=== PATIENT | male | born 1925 | race Caucasian/White ===

== ENCOUNTER 2016-06-19 14:06 | Emergency (ER) | payer OTHER, MEDICARE ==
[~2016-06-19] VITALS: Ht 182.9 cm; Wt 97.4 kg
[~2016-06-19 14:06] MED LIST: ALBUAER9 INH; ALFU10TA30 PO; DABI1CAP PO; DEXT30TA7 PO; FLUT0.0529 NAE; GUAI1TAB55 PO; MAGNSOL11 PO; MAGNSUS5 PO; MENT7.5M TOP; NUTR-977 PO; ONDA4TAB7 SL; OXYC-57 PO; POLYSOL4 OPB; PSYL55.43 PO; RBTDMUDL5 PO; SALI0.6515 NAE; SENN-65 PO; TRAM-10 PO
[2016-06-19 14:13] VITALS: TEMP 36.3; Ht 182.9 cm; Wt 97.4 kg
[2016-06-19] MEDS ORDERED: DOCU100C31 PO (14:43)
[2016-06-19] MEDS ORDERED: DABI1CAP PO (14:45)
[2016-06-19] MEDS ORDERED: SODIUM CHLORIDE 0.9% 500ML 500 ML IV STA (14:46)
[2016-06-19] MEDS ORDERED: SILO8CAP PO (14:48)
[2016-06-19] MEDS ORDERED: OPTIRAY 320 IV PRN (15:00)
[2016-06-19 15:37] LABS: URINE APPEARANCE CLEAR (CLEAR); URINE BILIRUBIN NEG (NEG); URINE COLOR YELLOW; URINE EPITHELIAL CELL AUTO 0-5 /lpf (0-5); URINE NITRITE NEG (NEG); URINE SPECIFIC GRAVITY 1.009 (1.000-1.030); UROBILINOGEN NEG (NEG); ZZUR CULT IF INDIC CLEAN CATCH NO
[2016-06-19 15:39] LABS: MANUAL MICROSCOPIC REQUIRED? NO; REVIEW REQ? NO
[2016-06-19 16:02] LABS: CALCIUM 8.9 mg/dl (8.5-10.1); CREATININE 1.7 mg/dl (0.60-1.40); POTASSIUM 4.7 mmol/L (3.5-5.1)
[2016-06-19 16:05] LABS: ALB/GLOB RATIO 1.1 (0.9-2)
[2016-06-19 16:58] LABS: BASO % 0.1 %; BASO ABS # 0.01 K/uL (0-0.2); COMPLETE YES; HEMATOCRIT 36.1 % (42-52); IG% 0.2 %; LYMPH % 17.7 %; LYMPH ABS # 1.42 K/uL (1.2-3.4); MEAN CELL VOLUME 98.6 fL (80-100); MEAN CORPUSCULAR HEMOGLOBIN 33.6 pg (25-34); MEAN CORPUSCULAR HGB CONC 34.1 g/dl (32-36); MEAN PLATELET VOLUME 11.9 fL (7.4-10.4); MONO % 8.8 %; NEUT % 72.2 %; PLATELET COUNT 196 K/uL (130-400); RED BLOOD COUNT 3.66 M/uL (4.7-6.1); WHITE BLOOD COUNT 8.04 K/uL (4.8-10.8)
--- NOTE | 2016-06-19 16:58 | DIAGNOSTIC IMAGING REPORT ---
ABDOMEN AND PELVIS CT WITHOUT CONTRAST CT DOSE: 1994.95 mGy.cm HISTORY: Pain LLQ abd pain TECHNIQUE: Multiaxial CT images of the abdomen and pelvis were performed without the use of intravenous and oral contrast according to the standard department stone protocol. COMPARISON STUDY: 10/30/2015 FINDINGS: Chronic mild bibasilar pulmonary interstitial change. Stable cardiomegaly. Liver spleen and pancreas are unremarkable. Inferior vena caval filter is present. Prior cholecystectomy. Kidneys negative for calcification or hydronephrosis. Bowel pattern overall is nonobstructive. There is no free fluid within the pelvic cul-de-sac. Patient status post right hip arthroplasty. Degenerative changes noted in the osseous structures throughout. A small fat-containing left inguinal hernia is present. There is no evidence of bowel containment or incarceration. IMPRESSION: Chronic and postoperative change. No acute process. Electronically signed by: Bahman Toro M.D. 06/19/2016 4:57 PM Dictated Date/Time: 06/19/2016 4:54 PM
--- NOTE | 2016-06-19 17:35 | EMERGENCY ROOM VISIT NOTE ---
History First contact with patient: 14:30 Chief Complaint: GROIN PAIN Stated Complaint: HERNIA History of Present Illness The patient is a 89 year old male who presents to the Emergency Department by private vehicle for evaluation of a possible hernia. The patient is complaining of pain. The LEFT groin area. He reports a history of anal hernia with repair 4-5 years ago. He reports that yesterday he felt a "poking" sensation in his LEFT inguinal area. He denies any pain into his testicles or scrotum. He reports no discomfort at this point, but reports pain with certain movements. He rates his current discomfort as 0/10. He denies any fevers, chills, medication, melena, hematuria, or dysuria. He denies a chest pain, palpitations, short of breath. Review of Systems A complete 10-point Review of Systems was discussed with the patient, with pertinent positives and negatives listed in the History of Present Illness. All remaining Review of Systems questions can be considered negative unless otherwise specified. Past Medical/Surgical History Medical Problems: (1) Atrial fibrillation (2) Cardiac stents (3) Carotid stents (4) CHF (congestive heart failure) (5) Coronary stents (6) HTN (hypertension) (7) UTI (lower urinary tract infection) Family History Hypertension Social History Smoking Status: Never Smoker Smokeless Tobacco Use: No Alcohol Use: none Drug Use: none Marital Status: Housing Status: assisted living Occupation Status: retired Current/Historical Medications Scheduled Carvedilol (Coreg), 3.125 MG PO BID Cetirizine Hcl (Zyrtec Allergy), 10 MG PO DAILY Cholecalciferol (Vitamin D3), 1 TAB PO DAILY Clonazepam (Klonopin), 0.5 MG PO QPM Dabigatran Etexilate Mesylate (Pradaxa), 75 MG PO BID Docusate Sodium (Docusate Sodium), 1 CAP PO BID Finasteride (Proscar), 5 MG PO DAILY Fluticasone Prop/Salmeterol (Advair Diskus 250/50 60 Dose), 1 PUFF INH BID Fluticasone Propionate (Nasal) (Flonase Allergy Relief), 2 SPRAYS EMAM HS Furosemide (Lasix), 80 MG PO DAILY Guaifenesin Ext Rel (Mucinex Ext Rel), 600 MG PO Q12 Losartan Potassium (Cozaar), 12.5 MG PO DAILY Melatonin (Melatonin), 6 MG PO HS Omeprazole (Prilosec), 20 MG PO DAILY Polyethylene Glycol-Propylene (Systane), 1 DROPS OPB QID Potassium Chloride (Potassium Chloride Er), 10 MEQ PO BID Saline (Saline Mist), 4 SPRAYS EMMA QID Silodosin (Rapaflo), 1 CAP PO HS Scheduled PRN Acetaminophen Tab (Tylenol), 650 MG PO Q4H PRN for Mild Pain Albuterol Sulfate (Proventil Hfa), 2 PUFFS INH Q4H PRN for Shortness of Breath Clindamycin Hcl (Cleocin), 600 MG PO DAILY PRN for PRIOR TO DENTAL APPT Dextromethorphan-Guaifenesin (Robitussin-Dm Syrup), 5 ML PO Q4H PRN for Cough Dextromethorphan-Guaifenesin (Mucinex Dm), 600 MG PO Q12 PRN for CONGESTION Enteral Nutrition Formula (Ensure Plus Vanilla), 1 CAN PO BID PRN for supplement Magnesium Citrate (Citrate Of Megnesia), 75 ML PO DAILY PRN for Constipation Magnesium Hydroxide (Milk Of Magnesia), 30 ML PO DAILY PRN for Constipation Menthol (Mouth-Throat) (Ricola), 1 YOUNG PO Q2H PRN for Cough Menthol (Topical Analgesic) (Icy Hot), 1 APPL TOP TID PRN for Pain Psyllium (Metamucil), 1 TBS PO DAILY PRN for Constipation Senna/Docusate Sod (Senokot S), 1-2 TAB PO BID PRN for Constipation Allergies Coded Allergies: Amoxicillin (Verified Allergy, Unknown, UNKNOWN, 06/19/16) Levofloxacin (Verified Allergy, Unknown, UNKNOWN, 06/19/16) Penicillins (Verified Allergy, Unknown, UNKNOWN, 06/19/16) Physical Exam Vital Signs Date Time Temp Pulse Resp B/P Pulse Ox O2 Delivery O2 Flow Rate FiO2 06/19/16 17:50 62 18 148/66 97 06/19/16 17:31 62 18 148/66 97 Room Air 06/19/16 15:31 61 18 154/71 99 Room Air 06/19/16 14:13 36.3 60 18 128/61 97 Room Air Pain Rating (0-10): 0 Physical Exam VITAL SIGNS - Vital signs and nursing notes were reviewed. GENERAL - 89-year-old male appearing his stated age who is in no acute distress. Communicates well with provider and answers questions appropriately. LUNGS - Chest wall symmetric without accessory muscle use, intercostals retractions, or central cyanosis. Normal vesicular breath sounds CTA B/L. No wheezes, rales, or rhonchi appreciated. CARDIAC - RRR with S1/S2. No murmur, rubs, or gallops appreciated. ABDOMEN - Abdominal contour flat and without pulsations or visible masses. Negative Gilberto's or Akbar Mendiola's Signs. BS normoactive all four quadrants. Mild tenderness to palpation appreciated in the LEFT inguinal area. No guarding. No Rebound Tenderness. Negative Rovsing's. Negative Shine's. No palpable masses, hepatosplenomegaly, or ascites noted. EXTREMITIES - No clubbing or peripheral cyanosis. No pretibial edema present. +3 /5 radial and dorsalis pedis pulses palpated throughout. PSYCH - A&Ox3 and cooperates fully with examiner. Pt is very pleasant and interacts well with examiner. Medical Decision & Procedures ER Provider Diagnostic Interpretation: Radiological imaging and reports were reviewed by myself. Radiologist's Interpretation as follows: ABDOMEN AND PELVIS CT WITHOUT CONTRAST CT DOSE: 1994.95 mGy.cm HISTORY: Pain LLQ abd pain TECHNIQUE: Multiaxial CT images of the abdomen and pelvis were performed without the use of intravenous and oral contrast according to the standard department stone protocol. COMPARISON STUDY: 10/30/2015 FINDINGS: Chronic mild bibasilar pulmonary interstitial change. Stable cardiomegaly. Liver spleen and pancreas are unremarkable. Inferior vena caval filter is present. Prior cholecystectomy. Kidneys negative for calcification or hydronephrosis. Bowel pattern overall is nonobstructive. There is no free fluid within the pelvic cul-de-sac. Patient status post right hip arthroplasty. Degenerative changes noted in the osseous structures throughout. A small fat-containing left inguinal hernia is present. There is no evidence of bowel containment or incarceration. IMPRESSION: Chronic and postoperative change. No acute process. Laboratory Results 06/19/16 15:15 Red Blood Count 3.66, Mean Corpuscular Volume 98.6, Mean Corpuscular Hemoglobin 33.6, Mean Corpuscular Hemoglobin Concent 34.1, Mean Platelet Volume 11.9, Neutrophils (%) (Auto) 72.2, Lymphocytes (%) (Auto) 17.7, Monocytes (%) (Auto) 8.8, Eosinophils (%) (Auto) 1.0, Basophils (%) (Auto) 0.1, Neutrophils # (Auto) 5.80, Lymphocytes # (Auto) 1.42, Monocytes # (Auto) 0.71, Eosinophils # (Auto) 0.08, Basophils # (Auto) 0.01 06/19/16 15:15 Test 06/19/16 15:15 White Blood Count 8.04 K/uL (4.8-10.8) Red Blood Count 3.66 M/uL (4.7-6.1) Hemoglobin 12.3 g/dL (14.0-18.0) Hematocrit 36.1 % (42-52) Mean Corpuscular Volume 98.6 fL (80-100) Mean Corpuscular Hemoglobin 33.6 pg (25-34) Mean Corpuscular Hemoglobin Concent 34.1 g/dl (32-36) Platelet Count 196 K/uL (130-400) Mean Platelet Volume 11.9 fL (7.4-10.4) Neutrophils (%) (Auto) 72.2 % Lymphocytes (%) (Auto) 17.7 % Monocytes (%) (Auto) 8.8 % Eosinophils (%) (Auto) 1.0 % Basophils (%) (Auto) 0.1 % Neutrophils # (Auto) 5.80 K/uL (1.4-6.5) Lymphocytes # (Auto) 1.42 K/uL (1.2-3.4) Monocytes # (Auto) 0.71 K/uL (0.11-0.59) Eosinophils # (Auto) 0.08 K/uL (0-0.5) Basophils # (Auto) 0.01 K/uL (0-0.2) RDW Standard Deviation 50.2 fL (36.4-46.3) RDW Coefficient of Variation 14.0 % (11.5-14.5) Immature Granulocyte % (Auto) 0.2 % Immature Granulocyte # (Auto) 0.02 K/uL (0.00-0.02) Urine Color YELLOW Urine Appearance CLEAR (CLEAR) Urine pH 6.0 (4.5-7.5) Urine Specific [place] 1.009 (1.000-1.030) Urine Protein NEG (NEG) Urine Glucose (UA) NEG (NEG) Urine Ketones NEG (NEG) Urine Occult Blood 3+ (NEG) Urine Nitrite NEG (NEG) Urine Bilirubin NEG (NEG) Urine Urobilinogen NEG (NEG) Urine Leukocyte Esterase NEG (NEG) Urine WBC (Auto) 1-5 /hpf (0-5) Urine RBC (Auto) >30 /hpf (0-4) Urine Hyaline Casts (Auto) 0 /lpf (0-5) Urine Epithelial Cells (Auto) 0-5 /lpf (0-5) Urine Bacteria (Auto) NEG (NEG) Anion Gap 9.0 mmol/L (3-11) Est Creatinine Clear Calc Drug Dose 36.3 ml/min Estimated GFR () 40.8 Estimated GFR (Non- 35.2 BUN/Creatinine Ratio 25.0 (10-20) Calcium Level 8.9 mg/dl (8.5-10.1) Total Bilirubin 0.4 mg/dl (0.2-1) Aspartate Amino Transf (AST/SGOT) 20 U/L (15-37) Alanine Aminotransferase (ALT/SGPT) 19 U/L (12-78) Alkaline Phosphatase 60 U/L (45-117) Total Protein 6.9 gm/dl (6.4-8.2) Albumin 3.6 gm/dl (3.4-5.0) Globulin 3.3 gm/dl (2.5-4.0) Albumin/Globulin Ratio 1.1 (0.9-2) Medications Administered Medications (Trade) Dose Ordered Sig/José Manuel Route Start Time Stop Time Status Last Admin Dose Admin Sodium Chloride (Nss 500ml) 500 ml @ 999 mls/hr Q31M STAT IV 06/19/16 14:46 06/19/16 15:16 DC 06/19/16 15:28 999 MLS/HR ED Course Patient was seen and evaluated by myself. Labs were drawn, saline lock in place. Patient was hydrated with a 500 mL normal saline bolus. CT of the abdomen and pelvis with IV contrast was initially ordered. Laboratory results demonstrate no acute leukocytosis, worrisome anemia, or bandemia. Patient's creatinine was elevated. CT was changed to CT without IV contrast. Urinalysis does not suggest infection. CT was otherwise unremarkable. He was found to have a small angle hernia on CT, however. Laboratory results and imaging studies were discussed with the patient and his family member who acknowledges understanding. They were encouraged to follow-up with primary care provider in general surgery from today's visit. They're educated on worrisome symptoms for return visit to the emergency department. Patient discharged home in good condition. Medical Decision Given the patient's presentation and stated complaints, I did elect to perform the above-mentioned workup. The patient presents today with pain to the LEFT inguinal area. He has no fever leukocytosis. CT demonstrate small anal hernia without strangulation or incarceration. Patient will follow closely with Gen. surgery from today's visit. He will return for changing/worsening symptoms. Patient discharged home afebrile and in good condition. In the evaluation and treatment of this patient, the following differential diagnoses were considered: Appendicitis, Diverticulitis, Diverticulosis, Colitis , Ischemic Colitis, Inflammatory Bowel Disease, Irritable Bowel Disease, Testicular Torsion, Kidney Stone, Pyelonephritis, Hydronephrosis, Cholecystitis , Ascending Cholangitis, Choledocholithiasis, GERD. Impression Primary Impression: Left inguinal hernia Departure Information Dispostion Home / Self-Care Condition GOOD Referrals No Doctor, Assigned (PCP) Bahman Martinez M.D. Patient Instructions ED Hernia Inguinal, [facility] Additional Instructions You have been treated in the Emergency Department your Abdominal Pain - LEFT Inguinal hernia. For pain control, you can use the following [id number] medicines (if >12 yo): - Regular strength (325mg/tab) Tylenol (acetaminophen) 2 tabs every 4-6 hours as needed. Do not exceed 12 tablets in a 24 hour period. Avoid taking more than 4 grams (4000 mg) of Tylenol per day. This includes any other sources of acetaminophen you may take on a regular basis. - Regular strength (200 mg/tab) Advil (ibuprofen) 1-2 tabs every 4-6 hours as needed. Do not exceed a dose of 3200 mg per day. Drink plenty of water and stay well hydrated. As with any trip to the Emergency Department, you should follow-up with your Primary Care Provider from today's visit. Return to the emergency department if your symptoms persist despite treatment plan outlined above or if the following symptoms occur: increased fevers, chills , worsening nausea/vomiting, blood in your stool or urine.
[2016-06-19 17:50] VITALS: BP 148/66; PULSE 62; O2SAT 97
[2016-11-08] MEDS ORDERED: DEXA0.5E3 PO (08:27)
[2016-11-08] MEDS ORDERED: LOSA1TAB PO (09:52)
[2016-11-08] MEDS ORDERED: CETI10TA99 PO (09:54)
[2016-11-08] MEDS ORDERED: MELA1TAB4 PO (10:08)
[2016-11-08] MEDS ORDERED: CLIN150C PO (10:22)
[2016-11-08] MEDS ORDERED: ACET-1256 PO (11:18)
[2016-11-08] MEDS ORDERED: FINA5TAB PO (12:43)
[2016-11-08] MEDS ORDERED: FURO80TA63 PO (14:31)
[2016-11-08] MEDS ORDERED: PRLSR20 PO (14:39)
[2016-11-08] MEDS ORDERED: CHOL1000 PO (14:39)
[2016-11-08] MEDS ORDERED: CARV3.122 PO (14:44)
[2016-11-08] MEDS ORDERED: FLUT0.15 NAE (14:51)
[2016-11-08] MEDS ORDERED: MOML PO (14:53)
[2016-11-08] MEDS ORDERED: MAGNSOL18 PO (14:56)
[2016-11-08] MEDS ORDERED: ALBUAER INH (14:58)
[2016-11-08] MEDS ORDERED: PSYL48.59 PO (15:03)
[2016-11-08] MEDS ORDERED: POTA-74 PO (16:09)
[2016-11-08] MEDS ORDERED: CLON0.5T3 PO (16:13)
[2016-11-08] MEDS ORDERED: MENT1LOZ4 PO (16:21)
== END 2016-06-19 17:50 | disposition home or self-care (01) ==
LOC: C.EDB 14:07
DX: K40.90 Unilateral inguinal hernia, without obstruction or gangrene, not specified as recurrent (principal); I48.91 Unspecified atrial fibrillation; I50.9 Heart failure, unspecified; I10 Essential (primary) hypertension; Z82.49 Family history of ischemic heart disease and other diseases of the circulatory system

== ENCOUNTER → 2016-08-13 | Outpatient (CLI) | payer OTHER, MEDICARE ==
[~2016-08-13] MED LIST changes: +ACET-1256 PO; +ACET325T96 PO; +ADVIN25/60 INH; +ALBINS/ INH; +ALBUAER INH; -ALBUAER9 INH; -ALFU10TA30 PO; +CARV3.122 PO; +CETI10TA99 PO; +CHOL1000 PO; +CLIN150C PO; +CLON0.5T3 PO; +DEXA0.5E3 PO; +DOCU-94 PO; +DOCU100C31 PO; +FINA5TAB PO; -FLUT0.0529 NAE; +FLUT0.15 NAE; +FURO20TA PO; +FURO80TA63 PO; +ICY HOT CREAM TOP; +LOSA1TAB PO; -MAGNSOL11 PO; +MAGNSOL18 PO; -MAGNSUS5 PO; +MELA1TAB4 PO; +MENT1LOZ4 PO; +MOML PO; +MOUTLIQ83 PO; +NYST1POW7 TOP; -ONDA4TAB7 SL; -OXYC-57 PO; +OXYC1TAB3 PO; +PHEN-939 PO; +POLYSOL4 OP; +POTA-74 PO; +PRD75 PO; +PRLSR20 PO; +PSYL48.59 PO; -PSYL55.43 PO; +RBTDMUDL5; +SALI0.6510 NAE; +SILO8CAP PO; +SULF800T23 PO; -TRAM-10 PO; +TROL10LO TOP; +[UNRECOGNIZED DRUG - CODE] TOP
[2016-08-13 13:36] LABS: BLOOD UREA NITROGEN 39 mg/dl (7-18); BUN/CREATININE RATIO 26.2 (10-20)
[2016-08-13 13:40] LABS: PROSTATE SPECIFIC ANTIGEN 0.013 ng/ml (0.000-4.000)
== END | disposition home or self-care (01) ==
LOC: C.LABOAKS 14:47
PROVIDERS: ATTEND Urology
DX: R31.0 Gross hematuria (principal); C61 Malignant neoplasm of prostate; R39.198 Other difficulties with micturition; R32 Unspecified urinary incontinence; N39.0 Urinary tract infection, site not specified; R39.15 Urgency of urination; R35.0 Frequency of micturition

== ENCOUNTER → 2016-08-23 | Outpatient (CLI) | payer OTHER, MEDICARE ==
[~2016-08-23] MED LIST changes: -RBTDMUDL5 PO
[2016-08-23 14:55] LABS: HEMATOCRIT 36.1 % (42-52)
[2016-08-23 15:12] LABS: BLOOD UREA NITROGEN 37 mg/dl (7-18); BUN/CREATININE RATIO 21.8 (10-20)
[2016-08-23 15:16] LABS: PROSTATE SPECIFIC ANTIGEN 0.014 ng/ml (0.000-4.000)
== END | disposition home or self-care (01) ==
LOC: C.LAB1850 13:32
PROVIDERS: ATTEND Urology
DX: R32 Unspecified urinary incontinence (principal); R39.15 Urgency of urination; C61 Malignant neoplasm of prostate; N39.0 Urinary tract infection, site not specified; R35.0 Frequency of micturition; R39.198 Other difficulties with micturition; R31.0 Gross hematuria

== ENCOUNTER → 2016-08-26 | Outpatient (CLI) | payer OTHER, MEDICARE ==
--- NOTE | 2016-08-26 15:15 | DIAGNOSTIC IMAGING REPORT ---
CHEST 2 VIEWS ROUTINE HISTORY: Pre hyperbaric oxygen study. Dyspnea on exertion. COMPARISON: Chest 08/09/2014. FINDINGS: No pneumothorax. No pleural effusions. The heart remains mildly enlarged. There is mild diffuse interstitial thickening, unchanged. No new focal lung consolidations to suggest pneumonia. Stable punctate calcified granuloma within the left lower lobe. Left-sided pacemaker/defibrillator. The lungs are hyperexpanded with mild apical predominant emphysematous changes. IMPRESSION: 1. No change compared to the prior study. 2. Mild cardiomegaly. 3. Mild diffuse interstitial thickening which is likely chronic. 4. Suspect mild emphysema. Electronically signed by: Romie Harris M.D. 08/26/2016 3:13 PM Dictated Date/Time: 08/26/2016 3:11 PM
--- NOTE | 2016-08-26 17:41 | ECHOCARDIOGRAM REPORT ---
*NOTICE TO RECEIVING [employer] This information is strictly Confidential and protected under [place] law. [place] law prohibits you from making any further disclosure of this information unless further disclosure is expressly permitted by the written consent of the person to whom it pertains or is authorized by law. A general authorization for the release of medical or other information is not sufficient for this purpose. Hospital accepts no responsibility if the information is made available to any other person, INCLUDING THE PATIENT. Interpretation Summary * Name: BRAXTON JOSÉ Study Date: 08/26/2016 01:57 PM BP: 124/42 mmHg * Patient Location: [facility] [place] HR: 42 * : 1925 (M/d/yyyy) Gender: Male Height: 72 in * Age: 89 yrs Ethnicity: [place] Weight: 212 lb * Ordering Physician: Bahman Fitzpatrick * Referring Physician: Bahman Fitzpatrick * Performed By: Shaye Sweet RDCS * * Reason For Study: PRE HBO WORK UP * BSA: 2.2 m2 * History: PRE HBO WORK UP * Moderate biventricular systolic dysfunction. * Mild left venntricular hypertrophy. * Severe biatrial dilatation. 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 * Moderate pulmonary hypertension. * Elevated central venous pressure. * No evidence of an intracardiac shunt on color flow and doppler exam. Bubble study not performed. Procedure Details * A complete two-dimensional transthoracic echocardiogram was performed (2D, M-mode, Doppler and color flow Doppler). Left Ventricle * The left ventricle is normal in size. * There is mild concentric left ventricular hypertrophy. * Ejection Fraction = 40-45%. * Left ventricular systolic function is moderately reduced. * There is moderate global hypokinesis of the left ventricle. * Flattened septum is consistent with RV pressure/volume overload. * Septal motion is consistent with conduction abnormality. Right Ventricle * There is a pacemaker lead in the right ventricle. * The right ventricle is moderately dilated. * The right ventricular systolic function is moderately reduced. Atria * The left atrium is severely dilated. * The right atrium is moderate to severely dilated. * No ASD detected; PFO is not assessed. Mitral Valve * There is moderate mitral annular calcification. * There is no mitral valve stenosis. * There is moderate to severe mitral regurgitation. Tricuspid Valve * The tricuspid valve is not well visualized, but is grossly normal. * There is no tricuspid stenosis. * There is severe tricuspid regurgitation. * Right ventricular systolic pressure is elevated at 50-60mmHg. Aortic Valve * The aortic valve is trileaflet. * The valve is calcified and has decreased opening on 2 D imaging. * Aortic valve area was calculated at 0.85 cm\S\2 using the continuity equation. * Aortic valve dimensionless index 0.25. * Moderate to severe valvular aortic stenosis. * There is no significant aortic regurgitation. Pulmonic Valve * The pulmonic valve is not well visualized. * The pulmonary valve is inadequately visualized, but the Doppler data is adequate for interpretation. * There is no pulmonic valvular stenosis. * Moderate pulmonic valvular regurgitation. Great Vessels * Borderline aortic root dilatation. Pericardium/Pleural * There is no pericardial effusion. Great Vessels * The inferior vena cava is moderately dilated. MMode 2D Measurements and Calculations IVSd 1.4 cm IVSs 2.1 cm LVIDd 4.7 cm LVIDs 3.5 cm LVPWd 1.4 cm LVPWs 1.3 cm IVS/LVPW 1.1 FS 24.9 % EDV(Teich) 103.0 ml ESV(Teich) 52.2 ml EF(Teich) 49.3 % EDV(cubed) 104.6 ml ESV(cubed) 44.3 ml EF(cubed) 57.7 % % IVS thick 46.4 % % LVPW thick -3.77 % LV mass(C)d 265.8 grams LV mass(C)dI 121.7 grams/m\S\2 LV mass(C)s 243.6 grams LV mass(C)sI 111.5 grams/m\S\2 SV(Teich) 50.8 ml SI(Teich) 23.3 ml/m\S\2 SV(cubed) 60.4 ml SI(cubed) 27.6 ml/m\S\2 Ao root diam 3.9 cm Ao root area 11.7 cm\S\2 LA dimension 5.1 cm LA/Ao 1.3 LVOT diam 2.1 cm LVOT area 3.4 cm\S\2 LVAd ap4 34.2 cm\S\2 LVLd ap4 8.2 cm EDV(MOD-sp4) 122.0 ml LVAs ap4 24.0 cm\S\2 LVLs ap4 7.8 cm ESV(MOD-sp4) 67.5 ml EF(MOD-sp4) 44.7 % LVAd ap2 38.1 cm\S\2 LVLd ap2 8.9 cm EDV(MOD-sp2) 131.5 ml EDV(sp2-el) 138.4 ml LVAs ap2 25.3 cm\S\2 LVLs ap2 8.0 cm ESV(MOD-sp2) 74.8 ml ESV(sp2-el) 68.4 ml EF(MOD-sp2) 43.1 % EF(sp2-el) 50.6 % SV(MOD-sp4) 54.5 ml SI(MOD-sp4) 25.0 ml/m\S\2 SV(MOD-sp2) 56.7 ml SI(MOD-sp2) 25.9 ml/m\S\2 SV(sp2-el) 70.0 ml SI(sp2-el) 32.0 ml/m\S\2 Doppler Measurements and Calculations MV E max tej 145.1 cm/sec MV dec time 0.19 sec Ao V2 max 209.6 cm/sec Ao max PG 17.6 mmHg Ao max PG (full) 16.5 mmHg Ao V2 mean 146.7 cm/sec Ao mean PG 9.5 mmHg Ao mean PG (full) 8.9 mmHg Ao V2 VTI 48.0 cm AMIE(I,A) 0.97 cm\S\2 AMIE(I,D) 0.97 cm\S\2 AMIE(V,A) 0.85 cm\S\2 AMIE(V,D) 0.85 cm\S\2 LV V1 max PG 1.1 mmHg LV V1 mean PG 0.57 mmHg LV V1 max 52.4 cm/sec LV V1 mean 35.2 cm/sec LV V1 VTI 13.8 cm MR max tej 548.4 cm/sec MR max PG 120.3 mmHg SV(Ao) 562.0 ml SI(Ao) 257.3 ml/m\S\2 SV(LVOT) 46.6 ml SI(LVOT) 21.4 ml/m\S\2 TR max tej 349.9 cm/sec
== END | disposition home or self-care (01) ==
LOC: C.CPL 13:48
PROVIDERS: ATTEND Emergency Medicine
DX: Z01.810 Encounter for preprocedural cardiovascular examination (principal); Z01.811 Encounter for preprocedural respiratory examination; I70.0 Atherosclerosis of aorta; I08.1 Rheumatic disorders of both mitral and tricuspid valves; I27.2 Other secondary pulmonary hypertension

== ENCOUNTER → 2016-11-04 | Outpatient (CLI) | payer OTHER, MEDICARE ==
[~2016-11-04] MED LIST changes: -ALBINS/ INH; -DABI1CAP PO; -FURO20TA PO; -GUAI1TAB55 PO; -OXYC1TAB3 PO; -PHEN-939 PO; -SULF800T23 PO
[2016-11-04 12:55] LABS: HEMATOCRIT 36.9 % (42-52); MEAN CELL VOLUME 100.5 fL (80-100); MEAN CORPUSCULAR HEMOGLOBIN 31.6 pg (25-34); MEAN CORPUSCULAR HGB CONC 31.4 g/dl (32-36); MEAN PLATELET VOLUME 11.9 fL (7.4-10.4); PLATELET COUNT 212 K/uL (130-400); RED BLOOD COUNT 3.67 M/uL (4.7-6.1); WHITE BLOOD COUNT 7.48 K/uL (4.8-10.8)
[2016-11-04 13:11] LABS: BLOOD UREA NITROGEN 43 mg/dl (7-18); BUN/CREATININE RATIO 23.8 (10-20); CALCIUM 9.4 mg/dl (8.5-10.1); CARBON DIOXIDE 26 mmol/L (21-32); CHLORIDE 106 mmol/L (98-107); GLUCOSE 100 mg/dl (70-99); POTASSIUM 4.6 mmol/L (3.5-5.1); SODIUM 140 mmol/L (136-145)
== END | disposition home or self-care (01) ==
LOC: C.LABPVFM 15:01
PROVIDERS: ATTEND Internal Medicine Interventional Cardiology
DX: R06.00 Dyspnea, unspecified (principal)

== ENCOUNTER 2016-11-08 18:17 | Observation (INO) | payer OTHER, MEDICARE ==
[~2016-11-08] VITALS: Ht 182.9 cm; Wt 95.7 kg
[~2016-11-08 18:17] MED LIST changes: -ACET325T96 PO; -ADVIN25/60 INH; -DOCU-94 PO; -ICY HOT CREAM TOP; -MOUTLIQ83 PO; -NYST1POW7 TOP; -POLYSOL4 OP; -PRD75 PO; -RBTDMUDL5; -SALI0.6510 NAE; -TROL10LO TOP; -[UNRECOGNIZED DRUG - CODE] TOP
[2016-11-08] MEDS ORDERED: ADVIN25/60 INH (19:43)
[2016-11-08] MEDS ORDERED: ACET325T96 PO (20:04)
[2016-11-08] MEDS ORDERED: PRD75 PO (20:12)
[2016-11-08] MEDS ORDERED: POLYSOL4 OP (20:12)
[2016-11-08] MEDS ORDERED: DOCU-94 PO (20:12)
[2016-11-08] MEDS ORDERED: [UNRECOGNIZED DRUG - CODE] TOP (20:12)
[2016-11-08] MEDS ORDERED: SALI0.6510 NAE (20:12)
[2016-11-08] MEDS ORDERED: ICY HOT CREAM TOP (20:12)
[2016-11-08] MEDS ORDERED: MOUTLIQ83 PO (20:12)
[2016-11-08] MEDS ORDERED: TROL10LO TOP (20:12)
[2016-11-08] MEDS ORDERED: RBTDMUDL5 (20:12)
[2016-11-08] MEDS ORDERED: NYST1POW7 TOP (20:12)
[2016-11-08] MEDS ORDERED: SILO8CAP PO (20:24)
--- NOTE | 2016-11-08 20:34 | DIAGNOSTIC IMAGING REPORT ---
TWO VIEW CHEST CLINICAL HISTORY: Cough. FINDINGS: PA and lateral chest radiographs are compared to study dated 08/26/2016 and correlated with chest CT dated 11/16/2013. The PA view is degraded by patient rotation. A cardiac pacemaker and several leads are unchanged in position. This partially obscures the left upper chest. The heart is enlarged and there is atherosclerotic calcification of the thoracic aorta. The pulmonary vasculature is noncongested. 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 Emphysema and chronic interstitial thickening are similar to previous. There is no evidence of superimposed airspace consolidation or pleural effusion. There is no pneumothorax. The skeletal structures are osteopenic. Degenerative change and hyperkyphosis are seen in the thoracic spine. An IVC filter is partially imaged in the upper abdomen. IMPRESSION: 1. Cardiomegaly and cardiac pacemaker. There is no radiographic evidence of congestive failure. 2. Emphysema. 3. No airspace consolidation or pleural effusion is identified. Electronically signed by: Yannick Pedraza M.D. 11/08/2016 8:32 PM Dictated Date/Time: 11/08/2016 8:30 PM
[2016-11-08 20:51] LABS: BASO % 0.2 %; BASO ABS # 0.02 K/uL (0-0.2); COMPLETE YES; EOS % 2.2 %; HEMATOCRIT 37.6 % (42-52); IG% 0.1 %; LYMPH % 15.3 %; LYMPH ABS # 1.47 K/uL (1.2-3.4); MEAN CELL VOLUME 97.9 fL (80-100); MEAN CORPUSCULAR HEMOGLOBIN 32.8 pg (25-34); MEAN CORPUSCULAR HGB CONC 33.5 g/dl (32-36); MEAN PLATELET VOLUME 11.5 fL (7.4-10.4); NEUT % 70.2 %; PLATELET COUNT 231 K/uL (130-400); RED BLOOD COUNT 3.84 M/uL (4.7-6.1); WHITE BLOOD COUNT 9.59 K/uL (4.8-10.8)
[2016-11-08 21:00] LABS: INR 1.3 (0.9-1.1); PARTIAL THROMBOPLASTIN RATIO 1.6; PROTHROMBIN TIME (PATIENT) 14.3 SECONDS (9.0-12.0)
[2016-11-08 21:09] LABS: BLOOD UREA NITROGEN 42 mg/dl (7-18); BUN/CREATININE RATIO 22.1 (10-20); CALCIUM 9.5 mg/dl (8.5-10.1); CARBON DIOXIDE 25 mmol/L (21-32); CHLORIDE 104 mmol/L (98-107); GLUCOSE 124 mg/dl (70-99); POTASSIUM 4.3 mmol/L (3.5-5.1); SODIUM 139 mmol/L (136-145)
[2016-11-08] MEDS ORDERED: MAGNESIUM HYDROXIDE SUSP 30 ML UDC PO PRN (22:00)
[2016-11-08] MEDS ORDERED: MoRPHine SULFATE 2 MG/ML CARP IV PRN (22:00)
[2016-11-08] MEDS ORDERED: HEPARIN SOD 5000 UNIT/0.5 ML CARP SQ SCH (22:00)
[2016-11-08] MEDS ORDERED: ALBUTEROL HFA 8 GM INHALER INH PRN (22:00)
[2016-11-08] MEDS ORDERED: NITROGLYCERIN 0.4 MG SL PER TAB CHARGE SL PRN (22:00)
[2016-11-08] MEDS ORDERED: POLYETHYLENE (MIRALAX) 17 GM PACK PO PRN (22:00)
[2016-11-08] MEDS ORDERED: ALUMINUM/MAGNESIUM/SIMETH (MAALOX MAX) 30 ML UDC PO PRN (22:00)
[2016-11-08] MEDS ORDERED: ONDANSETRON INJ 2 MG/ML 2 ML VIAL IV PRN (22:00)
[2016-11-08] MEDS ORDERED: ACETAMINOPHEN 325 MG TAB PO PRN (22:00)
--- NOTE | 2016-11-08 22:18 | History and Physical ---
History & Physical Date & Time of Service: Nov 08, 2016 at 22:10 Chief Complaint: Possible Fluid In Lung Primary Care Physician: Kiran Franco History of Present Illness Source: patient 89 y/o M systolic CHF, COPD, CKD 3, CAD. Pt developed central CP after partially inhaling a cookie and suffering a coughing spell. The pain was described as central tightness. He was SOB from coughing - denies nausea/ vomiting or diaphoresis. His chest pain had resolved on arrival to the ER. He has a borderline troponin elevation. He states that he presented to the ER as he was concerned that the cookie went down the wrong pipe and was slightly dismayed when he was told he would be admitted for chest pain. His EKG is paced and nondiagnostic. He is chronically anticoagulated with Pradaxa. 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% 2) CAD - multiple catheterizations 3) COPD 4) Ventricular pacer 5) Chronic AF 6) Prostate CA 7) CKD 3 8) HTN 9) GERD 10) Carotid stenosis - stenting 11) Severe mitral and tricuspid regurgitation Surgical 1) R knee surgery 2) R hip surgery 3) Lap Cholecystectomy Family History Hypertension Social History Smoking Status: Former Smoker Drug Use: none Marital Status: Occupational Status: retired Allergies Coded Allergies: Amoxicillin (Verified Allergy, Unknown, UNKNOWN, 06/19/16) Levofloxacin (Verified Allergy, Unknown, UNKNOWN, 06/19/16) Penicillins (Verified Allergy, Unknown, UNKNOWN, 06/19/16) Home Medications Scheduled Acetaminophen (Tylenol), 1 TAB PO HS Carvedilol (Coreg), 3.125 MG PO BID Cetirizine Hcl (Zyrtec Allergy), 10 MG PO DAILY Cholecalciferol (Vitamin D3), 1 TAB PO DAILY Clonazepam (Klonopin), 0.5 MG PO QPM Dabigatran Elexilate (Pradaxa), 75 MG PO BID Docusate Sodium (Colace), 1 CAP PO BID Finasteride (Proscar), 5 MG PO DAILY Fluticasone Prop/Salmeterol (Advair Diskus 250/50 60 Dose), 1 PUFF INH BID Fluticasone Propionate (Nasal) (Flonase Allergy Relief), 2 SPRAYS EMMA HS Furosemide (Lasix), 80 MG PO DAILY Losartan Potassium (Cozaar), 12.5 MG PO DAILY Melatonin (Melatonin), 6 MG PO HS Mouthwashes (Biotene Dry Mouth Oral Ri), 1 DOSE PO QID Omeprazole (Prilosec), 20 MG PO DAILY Polyethylene Glycol-Propylene (Systane), 1 DROPS OP QID Potassium Chloride (Potassium Chloride Er), 10 MEQ PO BID Saline ([place] Nasal [place]), 2 SPRAYS EMMA Q4 Silodosin (Rapaflo), 1 CAP PO HS Scheduled PRN Acetaminophen Tab (Tylenol), 650 MG PO Q4H PRN for Mild Pain Albuterol Sulfate (Proventil Hfa), 2 PUFFS INH Q4H PRN for Shortness of Breath Clindamycin Hcl (Cleocin), 600 MG PO DAILY PRN for PRIOR TO DENTAL APPT Dexamethasone (Dexamethasone), 5 ML PO DAILY PRN for Shortness of Breath Magnesium Citrate (Citrate Of [place]), 75 ML PO DAILY PRN for Constipation Magnesium Hydroxide (Milk Of Magnesia), 30 ML PO DAILY PRN for Constipation Menthol (Mouth-Throat) (Ricola), 1 YOUNG PO Q2H PRN for Cough Menthol (Topical Analgesic) (Icy Hot Naturals), 1 APPLN TOP TID PRN for Pain Nystatin (Topical) (Nystatin), 1 APPLN TOP BID PRN for GROIN IRRITATION Psyllium (Metamucil), 1 TBS PO DAILY PRN for Constipation Trolamine Salicylate (Aspercreme), 1 APPLN TOP BID PRN for Pain [Icy Hot Cream], 1 APPLN TOP BID PRN for Pain Miscellaneous Medications Dextromethorphan-Guaifenesin (Robitussin-Dm Syrup), 5 ML Review of Systems Constitutional: No fever, No chills, No sweats Eyes: No worsening of vision ENT: No hearing loss, No unusual epistaxis, No nasal symptoms Respiratory: + cough (choking episode), + shortness of breath, No sputum, No wheezing Cardiovascular: + chest pain, No orthopnea, No PND Abdomen: No pain, No nausea, No vomiting Musculoskeletal: No joint pain Genitourinary - Male: No hematuria, No dysuria Neurologic: No memory loss, No paralysis, No weakness Psychiatric: No depression symptoms Endocrine: No fatigue Hematologic / Lymphatic: No abnormal bleeding/bruising Integumentary: No rash Allergic / Immunologic: No environmental allergies Physical Exam Vital Signs Date Time Temp Pulse Resp B/P (MAP) Pulse Ox O2 Delivery O2 Flow Rate FiO2 11/08/16 19:39 60 11/08/16 19:34 60 16 137/75 98 Room Air 11/08/16 19:34 98 Room Air 11/08/16 18:23 36.3 61 18 127/68 97 Room Air General Appearance: WD/WN, no apparent distress Head: normocephalic Eyes: normal inspection, EOMI ENT: normal ENT inspection, pharynx normal Neck: supple Respiratory/Chest: chest non-tender Abdomen/GI: normal bowel sounds, non tender, soft Back: normal inspection, no CVA tenderness Extremities/Musculoskelatal: normal inspection, no calf tenderness, normal capillary refill, no pedal edema, normal range of motion Neurologic/Psych: 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2 % Lymphocytes (%) (Auto) 15.3 % Monocytes (%) (Auto) 12.0 % Eosinophils (%) (Auto) 2.2 % Basophils (%) (Auto) 0.2 % Neutrophils # (Auto) 6.73 1.4-6.5 K/uL Lymphocytes # (Auto) 1.47 1.2-3.4 K/uL Monocytes # (Auto) 1.15 0.11-0.59 K/uL Eosinophils # (Auto) 0.21 0-0.5 K/uL Basophils # (Auto) 0.02 0-0.2 K/uL RDW Standard Deviation 49.2 36.4-46.3 fL RDW Coefficient of Variation 13.8 11.5-14.5 % Immature Granulocyte % (Auto) 0.1 % Immature Granulocyte # (Auto) 0.01 0.00-0.02 K/uL Prothrombin Time 14.3 9.0-12.0 SECONDS Prothromb Time International Ratio 1.3 0.9-1.1 Activated Partial Thromboplast Time 42.4 21.0-31.0 SECONDS Partial Thromboplastin Ratio 1.6 Sodium Level 139 136-145 mmol/L Potassium Level 4.3 3.5-5.1 mmol/L Chloride Level 104 98-107 mmol/L Carbon Dioxide Level 25 21-32 mmol/L Anion Gap 10.0 3-11 mmol/L Blood Urea Nitrogen 42 7-18 mg/dl Creatinine 1.90 0.60-1.40 mg/dl Estimated GFR () 35.4 Estimated GFR (Non- 30.6 BUN/Creatinine Ratio 22.1 10-20 Random Glucose 124 70-99 mg/dl Calcium Level 9.5 8.5-10.1 mg/dl Bedside Lactic Acid Venous 1.53 0.90-1.70 mmol/L Microbiology Results 11/08/16 Blood Culture, Received Pending 11/08/16 Blood Culture, Received Pending EKG Ventricular pacing Impression Assessment and Plan 89 y/o M systolic CHF, COPD, CKD 3, CAD. Pt developed central CP after partially inhaling a cookie and suffering a coughing spell. The pain was described as central tightness. He was SOB from coughing - denies nausea/ vomiting or diaphoresis. His chest pain had resolved on arrival to the ER. He has a borderline troponin elevation. He states that he presented to the ER as he was concerned that the cookie went down the wrong pipe and was slightly dismayed when he was told he would be admitted for chest pain. His EKG is paced and nondiagnostic. He is chronically anticoagulated with Pradaxa. 1) CP - documented CAD - Will trend troponins and treat symptomatically. He is anticoagulated with Pradaxa. We will continue Coreg and add ASA - presumably he is statin intolerant. 2) Concern for aspiration - no evidence of evolving pneumonia. 3) AF - paced - cont Coreg, Pradaxa. 4) COPD - no evidence of exacerbation. Cont inhalers as needed. 5) CHF - Euvolemic at present however creatinine may be climbing - will decrease AM Lasix dose pending repeat labs 6) CKD - creat may be climbing - again, Lasix dose decreased - recheck BMP AM Full code Heparin prophylaxis - total time for this admit including review of labs, meds, EKG, imaging, records - discussion with pt and ER attending - 35 min Level of Care Telemetry Resuscitation Status FULL RESUSCITATION VTE Prophylaxis VTE Risk Assessment Done? Y/N: Yes Risk Level: Moderate Given or contraindicated: Unfractionated heparin SQ
[2016-11-08 23:17] VITALS: BP 154/84; PULSE 60; TEMP 36.4; O2SAT 96; Ht 182.9 cm; Wt 95.7 kg
[2016-11-08] MEDS ORDERED: PATIENT'S HEIGHT AND/OR WEIGHT NEEDED SCH (23:30)
[2016-11-08 23:59] VITALS: BP 157/84; PULSE 60; TEMP 36.4; O2SAT 96
--- NOTE | 2016-11-09 00:25 | EMERGENCY ROOM VISIT NOTE ---
History Report prepared by Seema: Shaye Renee Under the Supervision of: Dr. Juan Malik M.D. First contact with patient: 19:14 Chief Complaint: OTHER COMPLAINT Stated Complaint: POSSIBLE FLUID IN LUNG History of Present Illness The patient is an 89 year old male who presents to the Emergency Room with complaints of a sudden choking episode that occurred around 1500. The patient states that he was eating a cookie this afternoon when he began choking on a crumb. He states that the crumb went down the wrong pipe and since then he has noticed a tightness in his chest and has been belching. He did feel a little short of breath with it as well. The patient denies any fever, chest pain, cough, vomiting, or abdominal pain. Source of History: patient Onset: 1500 Position: other (global) Quality: other (choking episode) Timing: other (sudden) Associated Symptoms: + SOB, No fevers, No cough, No chest pain, No vomiting , No abdominal pain Review of Systems See HPI for pertinent positives & negatives. A total of 10 systems reviewed and were otherwise negative. Past Medical & Surgical Medical Problems: (1) Atrial fibrillation (2) Cardiac stents (3) Carotid stents (4) Chest pain (5) CHF (congestive heart failure) (6) Coronary stents (7) HTN (hypertension) (8) UTI (lower urinary tract infection) Family History Hypertension Social History Smoking Status: Former Smoker Alcohol Use: none Drug Use: none Marital Status: Housing Status: assisted living Occupation Status: retired Current/Historical Medications Scheduled Acetaminophen (Tylenol), 1 TAB PO HS Carvedilol (Coreg), 3.125 MG PO BID Cetirizine Hcl (Zyrtec Allergy), 10 MG PO DAILY Cholecalciferol (Vitamin D3), 1 TAB PO DAILY Clonazepam (Klonopin), 0.5 MG PO QPM Dabigatran Elexilate (Pradaxa), 75 MG PO BID Docusate Sodium (Colace), 1 CAP PO BID Finasteride (Proscar), 5 MG PO DAILY Fluticasone Prop/Salmeterol (Advair Diskus 250/50 60 Dose), 1 PUFF INH BID Fluticasone Propionate (Nasal) (Flonase Allergy Relief), 2 SPRAYS EMMA HS Furosemide (Lasix), 80 MG PO DAILY Losartan Potassium (Cozaar), 12.5 MG PO DAILY Melatonin (Melatonin), 6 MG PO HS Mouthwashes (Biotene Dry Mouth Oral Ri), 1 DOSE PO QID Omeprazole (Prilosec), 20 MG PO DAILY Polyethylene Glycol-Propylene (Systane), 1 DROPS OP QID Potassium Chloride (Potassium Chloride Er), 10 MEQ PO BID Saline ([place] Nasal [place]), 2 SPRAYS EMMA Q4 Silodosin (Rapaflo), 1 CAP PO HS Scheduled PRN Acetaminophen Tab (Tylenol), 650 MG PO Q4H PRN for Mild Pain Albuterol Sulfate (Proventil Hfa), 2 PUFFS INH Q4H PRN for Shortness of Breath Clindamycin Hcl (Cleocin), 600 MG PO DAILY PRN for PRIOR TO DENTAL APPT Dexamethasone (Dexamethasone), 5 ML PO DAILY PRN for Shortness of Breath Magnesium Citrate (Citrate Of [place]), 75 ML PO DAILY PRN for Constipation Magnesium Hydroxide (Milk Of Magnesia), 30 ML PO DAILY PRN for Constipation Menthol (Mouth-Throat) (Ricola), 1 YOUNG PO Q2H PRN for Cough Menthol (Topical Analgesic) (Icy Hot Naturals), 1 APPLN TOP TID PRN for Pain Nystatin (Topical) (Nystatin), 1 APPLN TOP BID PRN for GROIN IRRITATION Psyllium (Metamucil), 1 TBS PO DAILY PRN for Constipation Trolamine Salicylate (Aspercreme), 1 APPLN TOP BID PRN for Pain [Icy Hot Cream], 1 APPLN TOP BID PRN for Pain Miscellaneous Medications Dextromethorphan-Guaifenesin (Robitussin-Dm Syrup), 5 ML Allergies Coded Allergies: Amoxicillin (Verified Allergy, Unknown, UNKNOWN, 06/19/16) Levofloxacin (Verified Allergy, Unknown, UNKNOWN, 06/19/16) Penicillins (Verified Allergy, Unknown, UNKNOWN, 06/19/16) Physical Exam Vital Signs Date Time Temp Pulse Resp B/P (MAP) Pulse Ox O2 Delivery O2 Flow Rate FiO2 11/08/16 20:02 60 16 120/67 97 Room Air 11/08/16 19:57 60 18 99 11/08/16 19:52 60 21 97 11/08/16 19:47 60 25 98 11/08/16 19:42 60 16 97 11/08/16 19:39 60 11/08/16 19:35 137/75 11/08/16 19:34 60 16 137/75 98 Room Air 11/08/16 19:34 98 Room Air 11/08/16 18:23 36.3 61 18 127/68 97 Room Air Physical Exam Constitutional: Vital signs reviewed. Eyes: Pupils are equal round reactive to light. Conjunctiva are noninjected. ENT: Pharynx is clear without erythema or exudate. Mucous membranes are moist. Neck supple without meningeal signs. Respiratory: Clear to auscultation bilaterally. Breath sounds are equal bilaterally. Cardiovascular: Regular rate and rhythm. No rubs or gallops. GI: Soft, nondistended and nontender. Bowel sounds are present. Musculoskeletal: Bilateral lower extremity edema without tenderness. Integumentary: No cyanosis. Neurological: The patient is awake and alert. No focal deficits. Psychiatric: Anxious appearing. Medical Decision & Procedures ER Provider Diagnostic Interpretation: X-ray results as stated below per interpretation by me and the radiologist: TWO VIEW CHEST CLINICAL HISTORY: Cough. FINDINGS: PA and lateral chest radiographs are compared to study dated 08/26/2016 and correlated with chest CT dated 11/16/2013. The PA view is degraded by patient rotation. A cardiac pacemaker and several leads are unchanged in position. This partially obscures the left upper chest. The heart is enlarged and there is atherosclerotic calcification of the thoracic aorta. The pulmonary vasculature is noncongested. 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 Emphysema and chronic interstitial thickening are similar to previous. There is no evidence of superimposed airspace consolidation or pleural effusion. There is no pneumothorax. The skeletal structures are osteopenic. Degenerative change and hyperkyphosis are seen in the thoracic spine. An IVC filter is partially imaged in the upper abdomen. IMPRESSION: 1. Cardiomegaly and cardiac pacemaker. There is no radiographic evidence of congestive failure. 2. Emphysema. 3. No airspace consolidation or pleural effusion is identified. Electronically signed by: Yannick Pedraza M.D. 11/08/2016 8:32 PM Dictated Date/Time: 11/08/2016 8:30 PM Laboratory Results 11/08/16 20:05 Red Blood Count 3.84, Mean Corpuscular Volume 97.9, Mean Corpuscular Hemoglobin 32.8, Mean Corpuscular Hemoglobin Concent 33.5, Mean Platelet Volume 11.5, Neutrophils (%) (Auto) 70.2, Lymphocytes (%) (Auto) 15.3, Monocytes (%) (Auto) 12.0, Eosinophils (%) (Auto) 2.2, Basophils (%) (Auto) 0.2, Neutrophils # (Auto ) 6.73, Lymphocytes # (Auto) 1.47, Monocytes # (Auto) 1.15, Eosinophils # (Auto ) 0.21, Basophils # (Auto) 0.02 11/08/16 20:05 Test 11/08/16 20:05 11/08/16 20:34 White Blood Count 9.59 K/uL (4.8-10.8) Red Blood Count 3.84 M/uL (4.7-6.1) Hemoglobin 12.6 g/dL (14.0-18.0) Hematocrit 37.6 % (42-52) Mean Corpuscular Volume 97.9 fL (80-100) Mean Corpuscular Hemoglobin 32.8 pg (25-34) Mean Corpuscular Hemoglobin Concent 33.5 g/dl (32-36) Platelet Count 231 K/uL (130-400) Mean Platelet Volume 11.5 fL (7.4-10.4) Neutrophils (%) (Auto) 70.2 % Lymphocytes (%) (Auto) 15.3 % Monocytes (%) (Auto) 12.0 % Eosinophils (%) (Auto) 2.2 % Basophils (%) (Auto) 0.2 % Neutrophils # (Auto) 6.73 K/uL (1.4-6.5) Lymphocytes # (Auto) 1.47 K/uL (1.2-3.4) Monocytes # (Auto) 1.15 K/uL (0.11-0.59) Eosinophils # (Auto) 0.21 K/uL (0-0.5) Basophils # (Auto) 0.02 K/uL (0-0.2) RDW Standard Deviation 49.2 fL (36.4-46.3) RDW Coefficient of Variation 13.8 % (11.5-14.5) Immature Granulocyte % (Auto) 0.1 % Immature Granulocyte # (Auto) 0.01 K/uL (0.00-0.02) Prothrombin Time 14.3 SECONDS (9.0-12.0) Prothromb Time International Ratio 1.3 (0.9-1.1) Activated Partial Thromboplast Time 42.4 SECONDS (21.0-31.0) Partial Thromboplastin Ratio 1.6 Anion Gap 10.0 mmol/L (3-11) Estimated GFR () 35.4 Estimated GFR (Non- 30.6 BUN/Creatinine Ratio 22.1 (10-20) Calcium Level 9.5 mg/dl (8.5-10.1) Troponin I 0.068 ng/ml (0-0.045) Bedside Lactic Acid Venous 1.53 mmol/L (0.90-1.70) Laboratory results as reviewed by me. ECG Indication: other (choking) Rate (beats per minute): 60 Rhythm: other (ventricularly paced) Findings: no acute ischemic change, no ectopy ED Course 1915: The patient was evaluated in room B2. A complete history and physical exam was performed. 2131: I reevaluated the patient and he is resting comfortably. His troponin is .07, but he states that his chest tightness is now resolved. I discussed all the exam findings with him and I recommended hospitalization for repeat enzymes. The patient states that he is not sure if he is willing stay for further treatment. 2134: Per nursing staff, the patient is now willing to stay for further evaluation and treatment. 2148: I discussed the patients case with Dr. Barone [facility]. He is going to evaluate the patient for further treatment and evaluation. Medical Decision This is an 89-year-old male presents with chest tightness. Differential diagnosis includes pneumonitis, aspiration, pneumonia, unstable angina, VT, GERD. I did perform a limited focused review of portions of the patient's old chart on the electronic medical record. 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 He had blood work on the 3rd of this month, showed anemia and chronic elevation of his creatinine Blood Pressure Screening: Patient was found to have a slightly elevated blood pressure due to circumstances. I do not believe that the patient requires hypertension monitoring. Medication Reconciliation: I attest that I have personally reviewed the patient' s current medication list. I did evaluate the patient as noted above. The patient is presenting with chest tightness across his chest with some shortness of breath. This occurred after possibly choking on a cookie crumb. He states he thinks it went down the wrong pipe and that's when his chest tightness began. He does deny any significant cough with the event. IV access was established. The patient was placed on a continuous certified recreational therapist. I did order and personally review the patient's 12-lead EKG and chest x-ray as described above. The patient has a paced rhythm. His chest x-ray demonstrates no evidence of pneumonia. I did order and review the patient's blood work as noted in the electronic medical record. His troponin is slightly elevated. He does have chronic elevation of his creatinine. I did reassess the patient. He states the chest tightness is now completely resolved. I did discuss the test results with the patient. I did recommend hospitalization for repeat cardiac enzymes. I did discuss the case with the hospitalist and mattress spring encaser. Consults Time Called: 2140 Consulting Physician: DONALD Garcia Returned Call: 2148 I discussed the patients case with DONALD Garcia. He is going to evaluate the patient for further treatment and evaluation. Impression Primary Impression: Acute chest pain Additional Impressions: Elevated troponin Chronic kidney disease Scribe Attestation The scribe's documentation has been prepared under my direct and personally reviewed by me in its entirety. I confirm that the note above accurately reflects all work, treatment, procedures, and medical decision making performed by me. Departure Information Dispostion Being Evaluated By Hospitalist Referrals Kiran Franco (PCP) Problem Qualifiers Additional Impressions: Chronic kidney disease Chronic kidney disease stage: unspecified stage Qualified Codes: N18.9 - Chronic kidney disease, unspecified
[2016-11-09] MEDS ORDERED: IV FLUIDS COMPLETED PRN (01:00)
[2016-11-09 03:33] VITALS: BP 133/70; PULSE 62; TEMP 36.6; O2SAT 94
[2016-11-09 07:53] VITALS: BP 134/96; PULSE 60; TEMP 36.5; O2SAT 96
[2016-11-09] MEDS ORDERED: FINASTERIDE 5 MG TAB PO SCH (09:00)
[2016-11-09] MEDS ORDERED: PANTOprazole SOD 40 MG TAB PO SCH (09:00)
[2016-11-09] MEDS ORDERED: FUROSEMIDE 80 MG TAB PO SCH (09:00)
[2016-11-09] MEDS ORDERED: DABIGATRAN ELEXILATE 75 MG CAP PO SCH (09:00)
[2016-11-09] MEDS ORDERED: FLUTICASONE/SALMETEROL 250/50 (ADVAIR) 14 PUFF/1 INHALER INH SCH (09:00)
[2016-11-09] MEDS ORDERED: CETIRIZINE HCL 10 MG TAB PO SCH (09:00)
[2016-11-09] MEDS ORDERED: LOSARTAN POTASSIUM 25 MG TAB PO SCH (09:00)
[2016-11-09] MEDS ORDERED: DOCUSATE SODIUM 100 MG CAP PO SCH (09:00)
[2016-11-09] MEDS ORDERED: POTASSIUM CHLORIDE 10 MEQ TABCR PO SCH (09:00)
[2016-11-09] MEDS ORDERED: CARVEDILOL 3.125 MG TAB PO SCH (09:00)
[2016-11-09] MEDS: ARTIFICIAL TEARS OP SOLN OP SCH ×4 (10:27→12:17)
--- NOTE | 2016-11-09 10:36 | Cardiology Consultation ---
Cardiology Consultation Date of Consultation: Nov 09, 2016. Pt evaluation today including: conversation w/ patient, chart review, lab review, review of studies History of Present Illness Aspiration on angélica Past Medical/Surgical History PAST MEDICAL HISTORY: 1. Hx of Severe ischemic cardiomyopathy, EF 25 to 30%. --echo 08/19 with mild LV dysfunction but concern for severe 2. Sick sinus syndrome status post [facility] permanent pacemaker placement. 3. Persistent atrial fibrillation on chronic Pradaxa therapy. 4. Carotid stenosis. 5. Prostate carcinoma s/p radiation therapy 6. Hyperlipidemia. 7. 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 Moderate to severe MR PAST SURGICAL HISTORY: 1. Multiple cardiac catheterizations and multiple PCI's. 2. Right carotid artery stenting. 3. Permanent pacemaker placement. 4. Right hip surgery. 5. Knee surgery. FAMILY HISTORY: Unremarkable SOCIAL HISTORY: The patient has remote cigar use. Denies any cigarette use. Denies any alcohol or recreational drug use. He currently lives at the [facility]. 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 Family History Hypertension Social History Smoking Status: Former Smoker History of Alcohol Use: No Review of Systems Respiratory: + cough, + sputum Allergies Coded Allergies: Amoxicillin (Verified Allergy, Unknown, UNKNOWN, 06/19/16) Levofloxacin (Verified Allergy, Unknown, UNKNOWN, 06/19/16) Penicillins (Verified Allergy, Unknown, UNKNOWN, 06/19/16) Medications Current Inpatient Medications Medications (Trade) Dose Ordered Sig/José Manuel Route Start Time Stop Time Status Last Admin Dose Admin Acetaminophen (Tylenol Tab) 650 mg Q4H PRN PO 11/08/16 22:00 12/08/16 21:59 Al Hydrox/Mg Hydrox/Simethicone (Maalox Max Susp) 15 ml Q4H PRN PO 11/08/16 22:00 12/08/16 21:59 Magnesium Hydroxide (Milk Of Magnesia Susp) 30 ml Q12H PRN PO 11/08/16 22:00 12/08/16 21:59 Ondansetron HCl (Zofran Inj) 4 mg Q6H PRN IV 11/08/16 22:00 12/08/16 21:59 Nitroglycerin (Nitrostat Tab) 0.4 mg UD PRN SL 11/08/16 22:00 12/08/16 21:59 Morphine Sulfate (MoRPHine SULFATE INJ) 2 mg Q30M PRN IV 11/08/16 22:00 11/22/16 21:59 Polyethylene (Miralax Powder Packet) 17 gm DAILY PRN PO 11/08/16 22:00 12/08/16 21:59 Albuterol (Ventolin Hfa Inhaler) 2 puffs Q4H PRN INH 11/08/16 22:00 12/08/16 21:59 Carvedilol (Coreg Tab) 3.125 mg BID PO 11/09/16 09:00 12/09/16 08:59 11/09/16 08:09 3.125 MG Cetirizine HCl (zyrTEC TAB) 10 mg DAILY PO 11/09/16 09:00 12/09/16 08:59 11/09/16 08:09 10 MG Clonazepam (Klonopin Tab) 0.5 mg QPM PO 11/09/16 21:00 12/09/16 20:59 Dabigatran (Pradaxa Cap) 75 mg BID PO 11/09/16 09:00 12/09/16 08:59 11/09/16 08:12 75 MG Docusate Sodium (coLACE CAP) 100 mg BID PO 11/09/16 09:00 12/09/16 08:59 11/09/16 08:09 100 MG Finasteride (Proscar Tab) 5 mg DAILY PO 11/09/16 09:00 12/09/16 08:59 11/09/16 08:10 5 MG Salmeterol Xinafoate/ Fluticasone (Advair Diskus 250/50 Inh) 1 puff BID INH 11/09/16 09:00 12/09/16 08:59 11/09/16 08:13 1 PUFF Fluticasone Propionate (Flonase Nasal [place]) 2 sprays HS EMMA 11/09/16 21:00 12/09/16 20:59 Furosemide (Lasix Tab) 40 mg DAILY PO 11/09/16 09:00 12/09/16 08:59 11/09/16 08:11 40 MG Losartan Potassium (coZAAR TAB) 12.5 mg DAILY PO 11/09/16 09:00 12/09/16 08:59 11/09/16 08:13 12.5 MG Pantoprazole Sodium (Protonix Tab) 40 mg DAILY PO 11/09/16 09:00 12/09/16 08:59 11/09/16 08:08 40 MG Artificial Tears (Artificial Tears) 1 drops QID OP 11/09/16 09:00 12/09/16 08:59 Potassium Chloride (Klor-Con M10) 10 meq BID PO 11/09/16 09:00 12/09/16 08:59 11/09/16 08:08 10 MEQ Miscellaneous Information (Order Awaiting Action) 1 ea QS N/A 11/09/16 00:00 12/09/16 00:00 Miscellaneous (Iv Fluids Completed) 1 ea PRN PRN N/A 11/09/16 01:00 11/09/17 00:59 Physical Exam Vital Signs Past 12 Hours Date Time Temp Pulse Resp B/P (MAP) Pulse Ox O2 Delivery O2 Flow Rate FiO2 11/09/16 08:00 Room Air 11/09/16 07:53 36.5 60 16 134/96 (109) 96 Room Air 11/09/16 04:00 Room Air 11/09/16 03:33 36.6 62 20 133/70 (91) 94 Room Air 11/08/16 23:59 36.4 60 20 157/84 (108) 96 Room Air 11/08/16 23:59 96 Room Air 11/08/16 23:17 36.4 60 20 154/84 96 Room Air Constitutional: General Apperance: heathly-appearing (SOB talking in sentences) Level of Distress: NAD Psychiatric: Mental Status: active & alert, normal mood, normal affect Lungs: Auscultation: breath sounds normal, no wheezing, no rales/crackles, no rhonchi Cardiovascular: Heart Auscultation: RRR (Paced), II/ YU (not well heard but mid peaking?) Abdomen: Bowel Sounds: normal Inspection & Palpation: soft, non-distended, no tenderness, guarding & rebound Extremities: edema (mild) Data Laboratory Results: Last 24 Hours Test 11/08/16 20:05 11/08/16 20:34 11/08/16 23:18 11/09/16 05:28 White Blood Count 9.59 K/uL Red Blood Count 3.84 M/uL Hemoglobin 12.6 g/dL Hematocrit 37.6 % Mean Corpuscular Volume 97.9 fL Mean Corpuscular Hemoglobin 32.8 pg Mean Corpuscular Hemoglobin Concent 33.5 g/dl Platelet Count 231 K/uL Mean Platelet Volume 11.5 fL Neutrophils (%) (Auto) 70.2 % Lymphocytes (%) (Auto) 15.3 % Monocytes (%) (Auto) 12.0 % Eosinophils (%) (Auto) 2.2 % Basophils (%) (Auto) 0.2 % Neutrophils # (Auto) 6.73 K/uL Lymphocytes # (Auto) 1.47 K/uL Monocytes # (Auto) 1.15 K/uL Eosinophils # (Auto) 0.21 K/uL Basophils # (Auto) 0.02 K/uL RDW Standard Deviation 49.2 fL RDW Coefficient of Variation 13.8 % Immature Granulocyte % (Auto) 0.1 % Immature Granulocyte # (Auto) 0.01 K/uL Prothrombin Time 14.3 SECONDS Prothromb Time International Ratio 1.3 Activated Partial Thromboplast Time 42.4 SECONDS Partial Thromboplastin Ratio 1.6 Sodium Level 139 mmol/L Potassium Level 4.3 mmol/L Chloride Level 104 mmol/L Carbon Dioxide Level 25 mmol/L Anion Gap 10.0 mmol/L Blood Urea Nitrogen 42 mg/dl Creatinine 1.90 mg/dl Estimated GFR () 35.4 Estimated GFR (Non- 30.6 BUN/Creatinine Ratio 22.1 Random Glucose 124 mg/dl Calcium Level 9.5 mg/dl Troponin I 0.068 ng/ml 0.079 ng/ml Bedside Lactic Acid Venous 1.53 mmol/L Total Bilirubin 0.7 mg/dl Direct Bilirubin 0.2 mg/dl Aspartate Amino Transf (AST/SGOT) 23 U/L Alanine Aminotransferase (ALT/SGPT) 23 U/L Alkaline Phosphatase 70 U/L Total Protein 6.9 gm/dl Albumin 3.6 gm/dl Imaging: CXR with pulmonary HTN, No chf EKG:Afib Vpaced Assessment & Plan 1. mild troponin elevation--likely demand ischemia 2. Multifactorial dyspnea secondary to aortic stenosis, possible coronary ischemia, moderate to severe pulmonary hypertension, severely elevated right atrial pressures, and moderate to severe mitral regurgitation 3. Pacemaker and VVI mode 4. Chronic atrial fibrillation chronic lower extremity edema 5. Coronary artery disease 6.chronic lower extremity edema 7. Chronic kidney disease stage IV History of small troponin elevation is likely related to demand ischemia in the face of aspiration. At this point it does not suggest an acute coronary syndrome. He has chronic dyspnea on exertion which appears to be worsening over the last couple of months. He follows with a mechanical laboratory technician in [place]. He notes there is a plan to consider additional cardiac testing in the next couple of weeks. Based on his echocardiogram of August 2016, he has moderate to severe pulmonary hypertension leading to flattening of the intraventricular septum and associated RV dysfunction and at least aortic stenosis which are likely contributing to his degree of dyspnea. If it is confirmed that he has severe aortic stenosis then one option is to consider TAVR. The issues are his age at 89 and his kidney disease with a creatinine 1.9. From my standpoint he be discharged home on his outpatient medications. he should continue his diuretics to improve his WILLIS with close observation of his CREATIVE SERVICES COORDINATOR. Follow up with cardiology in [place].
[2016-11-09 11:25] VITALS: BP 95/55; PULSE 60; TEMP 36.4; O2SAT 96
--- NOTE | 2016-11-09 13:36 | Discharge Instructions ---
Discharge Instructions Date of Service Nov 09, 2016. Admission Reason for Admission: Chest Pain Discharge Discharge Diagnosis / Problem: Aspiration Atypical chest pain demand ischemia resolved Discharge Goals Goal(s): Improve function Activity Recommendations Activity Limitations: resume your previous activity . Current Hospital Diet Patient's current hospital diet: AHA Diet (Heart Healthy) Discharge Diet Recommended Diet: Low Sodium Diet (2gm Na) Pending Studies Studies pending at discharge: no Medical Emergencies . Who to Call and When: Medical Emergencies: If at any time you feel your situation is an emergency, please call 911 immediately. . Non-Emergent Contact Non-Emergency issues call your: Primary Care Provider, Demolition Hammer Operator . . "Provider Documentation" section prepared by Berhane Lopez. . VTE Core Measure Inpt VTE Proph given/why not?: Unfractionated heparin SQ
[2016-11-09 13:42] VITALS: BP 95/55; PULSE 60; TEMP 36.4; O2SAT 96
[2016-11-09] MEDS ORDERED: FLUTICASONE PROPIONATE NA SPR 16 GM BTL NAE SCH (21:00)
[2016-11-09] MEDS ORDERED: CLONAZEPAM 0.5 MG TAB PO SCH (21:00)
--- NOTE | 2016-11-09 23:34 | Discharge Summary ---
Discharge Summary Date of Service Nov 09, 2016. Discharge Summary Admission Date: Nov 08, 2016 at 22:04 Discharge Date: Nov 09, 2016 Discharge Disposition: Home Principal Diagnosis: demand ischemia with episode of aspiration Consultations: Dr. Castellon Medication Reconciliation Continued Medications: Acetaminophen (Tylenol) 500 Mg Tab 1 TAB PO HS for 3 Days, #10 TAB Acetaminophen Tab (Tylenol) 325 Mg Tab 650 MG PO Q4H PRN for Mild Pain, TAB MAXIMUM OF 3 GM APAP/24 HOURS Albuterol Sulfate (Proventil Hfa) 108 Mcg/Act Aer 2 PUFFS INH Q4H PRN for Shortness of Breath Carvedilol (Coreg) 3.125 Mg Tab 3.125 MG PO BID, TAB Cetirizine Hcl (Zyrtec Allergy) 10 Mg Tab 10 MG PO DAILY Cholecalciferol (Vitamin D3) 1,000 Unit Tab 1 TAB PO DAILY for 90 Days, #90 TAB 3 Refills Clindamycin Hcl (Cleocin) 150 Mg Cap 600 MG PO DAILY PRN for PRIOR TO DENTAL APPT, CAP TAKE PRIOR TO DENTAL APPOINTMENT Clonazepam (Klonopin) 0.5 Mg Tab 0.5 MG PO QPM, TAB Dabigatran Elexilate (Pradaxa) 75 Mg Cap 75 MG PO BID, #48 Dexamethasone (Dexamethasone) 0.5 Mg/5 Ml Elx 5 ML PO DAILY PRN for Shortness of Breath for 4 Days, ML Dextromethorphan-Guaifenesin (Robitussin-Dm Syrup) 1 Syp Syp 5 ML Docusate Sodium (Colace) 100 Mg Cap 1 CAP PO BID for 30 Days, #60 CAP Finasteride (Proscar) 5 Mg Tab 5 MG PO DAILY, TAB Fluticasone Prop/Salmeterol (Advair Diskus 250/50 60 Dose) 1 Ea Aerp 1 PUFF INH BID, INHALER RINSE MOUTH AFTER USE. Fluticasone Propionate (Nasal) (Flonase Allergy Relief) 50 Mcg/Act Spr 2 SPRAYS EMMA HS Furosemide (Lasix) 80 Mg Tab 80 MG PO DAILY, TAB Losartan Potassium (Cozaar) 25 Mg Tab 12.5 MG PO DAILY, TAB Magnesium Citrate (Citrate Of [place]) 1 Zoila Zoila 75 ML PO DAILY PRN for Constipation Magnesium Hydroxide (Milk Of Magnesia) 30 Ml Susp 30 ML PO DAILY PRN for Constipation, ML Melatonin (Melatonin) 1 Mg Tab 6 MG PO HS Menthol (Mouth-Throat) (Ricola) 1 Norma Norma 1 NORMA PO Q2H PRN for Cough Menthol (Topical Analgesic) (Icy Hot Naturals) 7.5 % Cre 1 APPLN TOP TID PRN for Pain Mouthwashes (Biotene Dry Mouth Oral Ri) 1 Liq Liq 1 DOSE PO QID Nystatin (Topical) (Nystatin) 1 Pow Pow 1 APPLN TOP BID PRN for GROIN IRRITATION Omeprazole (Prilosec) 20 Mg Capcr 20 MG PO DAILY, CAP Polyethylene Glycol-Propylene (Systane) 1 Zoila Zoila 1 DROPS OP QID, #30 ML 5 Refills Potassium Chloride (Potassium Chloride Er) 10 Meq Tab 10 MEQ PO BID Psyllium (Metamucil) 48.57 % Pow 1 TBS PO DAILY PRN for Constipation Saline ([place] Nasal [place]) 0.65 % Spr 2 SPRAYS EMMA Q4 Silodosin (Rapaflo) 8 Mg Cap 1 CAP PO HS for 90 Days, CAP 3 Refills Trolamine Salicylate (Aspercreme) 10 % Lot 1 APPLN TOP BID PRN for Pain [Icy Hot Cream] () 1 APPLN TOP BID PRN for Pain Hospital Course The patient is an 89-year-old is a history of coronary artery disease and aspirated a cookie. He came to the emergency room because of fear that cookie was stuck in his throat. He also had some chest tightness and mildly elevated troponins with prompted his observation. He was seen in consultation by Dr. Castellon he was discovered to be asymptomatic and by report he has a stress test scheduled for later this month his primary transport specialist. No further cardiac testing at this time is necessary and he can follow-up with his primary transport specialist for additional workup. He has underlying valvular heart disease, with coronary artery disease. Total Time Spent: Greater than 30 minutes This includes examination of the patient, discharge planning, medication reconciliation, and communication with other providers. Discharge Instructions Please refer to the electronic Patient Visit Report (Discharge Instructions) for additional information. Follow-Up Primary transport specialist in 1-2 weeks for stress testing
[2017-02-11] MEDS ORDERED: FINA5TAB PO (08:59)
[2017-02-11] MEDS ORDERED: SILO8CAP PO (08:59)
== END 2016-11-09 15:49 | disposition home or self-care (01) ==
LOC: C.EDB 18:17 → C.2T 22:04 → ENRESERV 22:13
PROVIDERS: ADMIT Internal Medicine; ATTEND Internal Medicine
DX: I24.8 Other forms of acute ischemic heart disease (principal); T17.920A Food in respiratory tract, part unspecified causing asphyxiation, initial encounter; I48.91 Unspecified atrial fibrillation; I25.10 Atherosclerotic heart disease of native coronary artery without angina pectoris; N18.9 Chronic kidney disease, unspecified; I13.0 Hypertensive heart and chronic kidney disease with heart failure and stage 1 through stage 4 chronic kidney disease, or unspecified chronic kidney disease; I50.9 Heart failure, unspecified; Z95.5 Presence of coronary angioplasty implant and graft; Z87.891 Personal history of nicotine dependence; Z79.899 Other long term (current) drug therapy; X58.XXXA Exposure to other specified factors, initial encounter

== ENCOUNTER → 2016-11-18 | Outpatient (CLI) | payer OTHER, MEDICARE ==
[~2016-11-18] MED LIST changes: +ACET325T96 PO; +ADVIN25/60 INH; -DEXT30TA7 PO; +DOCU-94 PO; -DOCU100C31 PO; +ICY HOT CREAM TOP; -MENT7.5M TOP; +MOUTLIQ83 PO; -NUTR-977 PO; +NYST1POW7 TOP; +POLYSOL4 OP; -POLYSOL4 OPB; +PRD75 PO; +RBTDMUDL5; +SALI0.6510 NAE; -SALI0.6515 NAE; -SENN-65 PO; +TROL10LO TOP; +[UNRECOGNIZED DRUG - CODE] TOP
[2016-11-18 13:13] LABS: BLOOD UREA NITROGEN 38 mg/dl (7-18); CALCIUM 9.1 mg/dl (8.5-10.1); CARBON DIOXIDE 27 mmol/L (21-32); CHLORIDE 106 mmol/L (98-107); GLUCOSE 93 mg/dl (70-99); MAGNESIUM 2.4 mg/dl (1.8-2.4); POTASSIUM 4.2 mmol/L (3.5-5.1); SODIUM 140 mmol/L (136-145)
== END | disposition home or self-care (01) ==
LOC: C.LABSPEC 11:56
PROVIDERS: ATTEND Internal Medicine Interventional Cardiology
DX: I50.9 Heart failure, unspecified (principal)

== ENCOUNTER → 2017-01-29 | Outpatient (CLI) | payer OTHER, MEDICARE | END | disposition home or self-care (01) | LOC: C.LABSPEC 17:18 | PROVIDERS: ATTEND Nurse Practitioner Adult Health | DX: R31.0 Gross hematuria (principal); R32 Unspecified urinary incontinence; N30.40 Irradiation cystitis without hematuria ==

== ENCOUNTER → 2017-02-04 | Outpatient (CLI) | payer OTHER, MEDICARE ==
[2017-02-04 12:28] LABS: BASO % 0.3 %; BASO ABS # 0.02 K/uL (0-0.2); COMPLETE YES; EOS % 1.6 %; IG% 0.1 %; LYMPH ABS # 1.72 K/uL (1.2-3.4); MEAN CELL VOLUME 100.3 fL (80-100); MEAN CORPUSCULAR HEMOGLOBIN 33.2 pg (25-34); MEAN CORPUSCULAR HGB CONC 33.1 g/dl (32-36); MEAN PLATELET VOLUME 11.8 fL (7.4-10.4); MONO % 12.6 %; NEUT % 62.4 %; PLATELET COUNT 204 K/uL (130-400); RED BLOOD COUNT 3.49 M/uL (4.7-6.1); WHITE BLOOD COUNT 7.48 K/uL (4.8-10.8)
[2017-02-04 13:17] LABS: BLOOD UREA NITROGEN 41 mg/dl (7-18); BUN/CREATININE RATIO 25.8 (10-20); CALCIUM 9.1 mg/dl (8.5-10.1); CARBON DIOXIDE 30 mmol/L (21-32); CHLORIDE 103 mmol/L (98-107); GLUCOSE 98 mg/dl (70-99); POTASSIUM 4.3 mmol/L (3.5-5.1); SODIUM 140 mmol/L (136-145)
== END | disposition home or self-care (01) ==
LOC: C.LABOAKS 12:11
PROVIDERS: ATTEND Nurse Practitioner Adult Health
DX: N30.40 Irradiation cystitis without hematuria (principal); R31.0 Gross hematuria; R32 Unspecified urinary incontinence

== ENCOUNTER → 2017-02-20 | Day surgery (SDC) | payer OTHER, MEDICARE ==
[2017-02-11 09:00] VITALS: BMI 27.0
--- NOTE | 2017-02-11 10:09 | PAT Medication Instructions ---
Service Date Feb 11, 2017. Current Home Medication List Acetaminophen (Tylenol), 1 TAB PO HS Acetaminophen Tab (Tylenol), 650 MG PO Q4H PRN for Mild Pain Albuterol Sulfate (Proventil Hfa), 2 PUFFS INH Q4H PRN for Shortness of Breath Carvedilol (Coreg), 3.125 MG PO BID Cetirizine Hcl (Zyrtec Allergy), 10 MG PO QAM Cholecalciferol (Vitamin D3), 1 TAB PO QAM Clindamycin Hcl (Cleocin), 600 MG PO DAILY PRN for PRIOR TO DENTAL APPT Clonazepam (Klonopin), 0.5 MG PO QPM Dabigatran Elexilate (Pradaxa), 75 MG PO BID Docusate Sodium (Colace), 1 CAP PO BID Finasteride (Proscar), 5 MG PO QAM Fluticasone Prop/Salmeterol (Advair Diskus 250/50 60 Dose), 1 PUFF INH BID Fluticasone Propionate (Nasal) (Flonase Allergy Relief), 2 SPRAYS EMMA HS Furosemide (Lasix), 80 MG PO BID Losartan Potassium (Cozaar), 12.5 MG PO QAM Magnesium Citrate (Citrate Of [place]), 75 ML PO DAILY PRN for Constipation Magnesium Hydroxide (Milk Of Magnesia), 30 ML PO DAILY PRN for Constipation Melatonin (Melatonin), 6 MG PO HS Menthol (Mouth-Throat) (Ricola), 1 YOUNG PO Q2H PRN for Cough Menthol (Topical Analgesic) (Icy Hot Naturals), 1 APPLN TOP TID PRN for Pain Mouthwashes (Biotene Dry Mouth Oral Ri), 1 DOSE PO QID Nystatin (Topical) (Nystatin), 1 APPLN TOP BID PRN for GROIN IRRITATION Omeprazole (Prilosec), 20 MG PO QAM Polyethylene Glycol-Propylene (Systane), 1 DROPS OP QID Potassium Chloride (Potassium Chloride Er), 10 MEQ PO BID Psyllium (Metamucil), 1 TBS PO DAILY PRN for Constipation Saline ([place] Nasal [place]), 2 SPRAYS EMMA Q4 Silodosin (Rapaflo), 1 CAP PO QPM Trolamine Salicylate (Aspercreme), 1 APPLN TOP BID PRN for Pain [Icy Hot Cream], 1 APPLN TOP BID PRN for Pain Medication Instructions For Your Scheduled Surgery - Instructions to be given by Cardiology: Dabigatran Elexilate (Pradaxa), 75 MG PO BID - Hold the following medications 24 hours prior to surgery: Trolamine Salicylate (Aspercreme), 1 APPLN TOP BID PRN for Pain [Icy Hot Cream], 1 APPLN TOP BID PRN for Pain Menthol (Topical Analgesic) (Icy Hot Naturals), 1 APPLN TOP TID PRN for Pain - Hold the following medications the morning of surgery: Cetirizine Hcl (Zyrtec Allergy), 10 MG PO QAM Cholecalciferol (Vitamin D3), 1 TAB PO QAM Docusate Sodium (Colace), 1 CAP PO BID Magnesium Citrate (Citrate Of [place]), 75 ML PO DAILY PRN for Constipation Magnesium Hydroxide (Milk Of Magnesia), 30 ML PO DAILY PRN for Constipation Furosemide (Lasix), 80 MG PO BID Psyllium (Metamucil), 1 TBS PO DAILY PRN for Constipation Losartan Potassium (Cozaar), 12.5 MG PO QAM Potassium Chloride (Potassium Chloride Er), 10 MEQ PO BID Mouthwashes (Biotene Dry Mouth Oral Ri), 1 DOSE PO QID Menthol (Mouth-Throat) (Ricola), 1 YOUNG PO Q2H PRN for Cough - Take the following medications the morning of surgery with a sip of water OTHERWISE NOTHING TO EAT OR DRINK AFTER MIDNIGHT: Acetaminophen Tab (Tylenol), 650 MG PO Q4H PRN for Mild Pain (may take if needed up to 4 hours prior to surgery) Albuterol Sulfate (Proventil Hfa), 2 PUFFS INH Q4H PRN for Shortness of Breath ( use if needed; BRING TO HOSPITAL) Carvedilol (Coreg), 3.125 MG PO BID Saline ([place] Nasal [place]), 2 SPRAYS EMMA Q4h PRN Polyethylene Glycol-Propylene (Systane), 1 DROPS OP QID Omeprazole (Prilosec), 20 MG PO QAM Finasteride (Proscar), 5 MG PO QAM Fluticasone Prop/Salmeterol (Advair Diskus 250/50 60 Dose), 1 PUFF INH BID - Take the following medications as scheduled the night before surgery: Acetaminophen (Tylenol), 1 TAB PO HS Acetaminophen Tab (Tylenol), 650 MG PO Q4H PRN for Mild Pain Albuterol Sulfate (Proventil Hfa), 2 PUFFS INH Q4H PRN for Shortness of Breath Carvedilol (Coreg), 3.125 MG PO BID Docusate Sodium (Colace), 1 CAP PO BID Silodosin (Rapaflo), 1 CAP PO QPM Melatonin (Melatonin), 6 MG PO HS Clonazepam (Klonopin), 0.5 MG PO QPM Magnesium Citrate (Citrate Of [place]), 75 ML PO DAILY PRN for Constipation Magnesium Hydroxide (Milk Of Magnesia), 30 ML PO DAILY PRN for Constipation Saline ([place] Nasal [place]), 2 SPRAYS EMMA Q4h PRN Furosemide (Lasix), 80 MG PO BID Fluticasone Propionate (Nasal) (Flonase Allergy Relief), 2 SPRAYS EMMA HS Potassium Chloride (Potassium Chloride Er), 10 MEQ PO BID Polyethylene Glycol-Propylene (Systane), 1 DROPS OP QID Mouthwashes (Biotene Dry Mouth Oral Ri), 1 DOSE PO QID Menthol (Mouth-Throat) (Ricola), 1 YOUNG PO Q2H PRN for Cough Fluticasone Prop/Salmeterol (Advair Diskus 250/50 60 Dose), 1 PUFF INH BID If you have any questions please call us at [phone] or [phone] or [phone]
[2017-02-11 11:07] LABS: URINE APPEARANCE CLEAR (CLEAR); URINE BILIRUBIN NEG (NEG); URINE COLOR ORANGE; URINE EPITHELIAL CELL AUTO 0-5 /lpf (0-5); URINE NITRITE NEG (NEG); URINE PH 5.5 (4.5-7.5); URINE SPECIFIC GRAVITY 1.017 (1.000-1.030); UROBILINOGEN NEG (NEG)
[2017-02-11 11:09] LABS: MANUAL MICROSCOPIC REQUIRED? NO; REVIEW REQ? NO
[~2017-02-20] VITALS: Ht 182.9 cm; Wt 91.0 kg
[~2017-02-20] MED LIST changes: +ATROPINE SULFATE 0.1 MG/ML 5ML SYR IV PRN; +CIPROFLOXACIN 200MG / D5W IV SCH; +CONRAY 30% 150ML BOTTLE ONE; -DEXA0.5E3 PO; +ETOMIDATE 2 MG/ML 20 ML VIAL IV ONE; +EpHEDrine SULFATE INJ 50 MG/ML AMP IV PRN; +FENTANYL CITRATE INJ 50 MCG/1 ML 2 ML VIAL IV PRN; +FENTANYL CITRATE INJ 50 MCG/1 ML 2 ML VIAL ONE; +KETAMINE HCL INJ 50 MG/ML 10 ML VIAL ONE; +LACTATED RINGER'S 1000ML 1,000 ML IV SCH; +LIDOCAINE HCL 2% 2 ML VIAL (20MG/ML) ONE; +MIDAZOLAM HCL 1 MG/ML 2ML VIAL ONE; +NURSING VERBAL MED ORDER ONE; +ONDANSETRON INJ 2 MG/ML 2 ML VIAL IV PRN; +ONDANSETRON INJ 2 MG/ML 2 ML VIAL ONE; +OXYC1TAB3 PO; +OXYCODONE/ACETAMINOPHEN 5-325 TAB PO PRN; +PHEN-939 PO; +PHENAZOPYRIDINE HCL 100 MG TAB PO PRN; +PROPOFOL IV EMULSION 10 MG/ML 20 ML VIAL IV ONE; -RBTDMUDL5; +SULF800T23 PO
[2017-02-20 05:33] VITALS: BP 132/58; PULSE 63; TEMP 36.5; O2SAT 99; Ht 182.9 cm; Wt 91.0 kg
--- NOTE | 2017-02-20 07:16 | History & Physical Bridge Note ---
H&P Re-Evaluation Bridge Note: I have examined the patient, reviewed the History & Physical and in the interval since the performance of the History & Physical I have noted the following changes of clinical significance: No changes noted
--- NOTE | 2017-02-20 08:13 | Discharge Instructions ---
Discharge Instructions Date of Service Feb 20, 2017. Admission Reason for Admission: Radiation Cystitis, Gross Hematuria Discharge Discharge Diagnosis / Problem: Same s/p fulguration Discharge Goals Goal(s): Improve function, Improve disease control, Therapeutic intervention Activity Recommendations Activity Limitations: as noted below Lifting Limitations: no more than 25 pounds, gradually increase as tolerated Exercise/Sports Limitations: rest today, gradually increase as tolerated May Resume Sexual Activity: when tolerated Shower/Bathe: no limitations Driving or Machine Use: resume 1 day after discharge . Instructions / Follow-Up Instructions / Follow-Up In office as scheduled for postoperative check Discharge Diet Recommended Diet: Regular Diet (good fluid intake) Procedures Procedures Performed: Cystoscopy, Rollerball Fulguration Pending Studies Studies pending at discharge: no Medical Emergencies . Who to Call and When: Medical Emergencies: If at any time you feel your situation is an emergency, please call 911 immediately. . Non-Emergent Contact Non-Emergency issues call your: Urologist Call Non-Emergent contact if: you have a fever, temperature is above 101, your pain is not controlled, your pain is worsening, your pain is unusual for you, your pain is concerning you, you have any medication questions . . "Provider Documentation" section prepared by Migel Warner. . VTE Core Measure Inpt VTE Proph given/why not?: SCD's [place] Drug Monitoring Program Search Results: patient reviewed within database, see additional documentation (no narcotic Rx )
--- NOTE | 2017-02-20 08:16 | [facility] Post Operative Brief Note ---
Immediate Operative Summary Operative Date Feb 20, 2017. 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 Migel Warner Bead Forming Machine Set Up Operator Surgeon(s) NA Estimated Blood Loss 2ml Findings Tortuous, friable vessels with oozing fulgurated, excellent hemostasis, UOs spared, no masses Specimens NA Drains 16 fr 10 cc H2O worrell Anesthesia MAC Complication(s) None Disposition Recovery Room / PACU
--- NOTE | 2017-02-20 08:21 | [facility] Operative Report ---
Operative Report Operative Date Feb 20, 2017. 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 He is pending cardiac and aortic surgery and therefore considered high risk by anesthesia. Plan is to perform his procedure under sedation today to minimize his anesthesia risk. Intravenous ciprofloxacin was provided preoperatively, 200 mg for renal function. This is well-tolerated with no evidence of reaction. There was some concern from the nursing staff over the patient's listed history of hives in reaction to Levaquin but per the daughter's recollection as well as my own patient has received ciprofloxacin in the past without difficulties. SCDs used for DVT prophylaxis. Please see H&P for further details. Consent reviewed preoperatively and altered per nursing requirements. Description of Procedure Patient was properly identified and brought into the operative suite after identification for appropriate consent of the chart. Monitored anesthesia care with sedation was initiated and patient was prepped and draped in standard fashion for this procedure. 27 [place] resectoscope was introduced into the bladder under direct visualization using a visual obturator. A moderately tight prostate and bladder neck consistent with previous radiation exposure was noted. No significant bleeding from the prostate was appreciated. Ureteral orifices were identified in the normal anatomic location. A relatively small, trabeculated bladder was noted without masses or significant mucosal changes. Tortuous, friable vessels consistent with radiation changes were noted. Rollerball cautery was used over the level of the vessels to ablate areas were oozing was appreciated the vessels were felt to be prominent. Slow, steady bleeding which had been present on initial placement of scope improved over the course of the case as the cautery was undertaken. After completion of the case no significant large vessels or oozing was appreciated. Some pinpoint cautery at the level of the prostatic fossa was noted for suspicious vessels. Bladder was partially distended and resectoscope was removed. 16 [place]ian Worrell catheter was placed for temporary bladder rest with 10 mL of sterile water in the balloon. Anesthesia was reversed and patient was transferred to the recovery room in stable condition. Follow-up care: Patient will be discharged home with a short course of Bactrim and is provided with pyridium and Percocet for postoperative analgesia. Trial void prior to discharge home today. Outpatient appointments are confirmed. Patient is instructed to contact our service should he note any fevers, chills, nausea, vomiting or other significant difficulties in the postoperative period. I attest to the content of the Intraoperative Record and any orders documented therein. Any exceptions are noted below.
[2017-02-20 08:40] VITALS: BP 139/64; PULSE 60; TEMP 36.6; O2SAT 98
--- NOTE | 2017-02-20 08:55 | Anesthesiology Progress Note ---
Anesthesia Post Op Note Date & Time Feb 20, 2017 at 08:54 Vital Signs Pain Intensity: 0 Vital Signs Past 12 Hours Date Time Temp Pulse Resp B/P (MAP) Pulse Ox O2 Delivery O2 Flow Rate FiO2 02/20/17 08:25 36.5 60 13 120/63 98 Room Air 02/20/17 08:15 61 17 123/58 99 Oxymask 10 02/20/17 08:05 36.3 64 23 105/49 96 Oxymask 10 02/20/17 05:33 36.5 63 20 132/58 (82) 99 Room Air Notes Mental Status: alert / awake / arousable, participated in evaluation Pt Amnestic to Procedure: Yes Nausea / Vomiting: adequately controlled Pain: adequately controlled Airway Patency, RR, SpO2: stable & adequate BP & HR: stable & adequate Hydration State: stable & adequate Anesthetic Complications: no major complications apparent
[2017-02-20 09:10] VITALS: BP 138/67; PULSE 61; TEMP 36.7; O2SAT 100
[2017-02-20 09:40] VITALS: BP 151/65; PULSE 60; TEMP 36.5; O2SAT 100
== END | disposition home or self-care (01) ==
LOC: C.ACU 05:01
PROVIDERS: ATTEND Urology
DX: N30.41 Irradiation cystitis with hematuria (principal); I25.10 Atherosclerotic heart disease of native coronary artery without angina pectoris; R31.0 Gross hematuria; C61 Malignant neoplasm of prostate; R39.198 Other difficulties with micturition; R32 Unspecified urinary incontinence; R39.15 Urgency of urination; R35.0 Frequency of micturition; J44.9 Chronic obstructive pulmonary disease, unspecified; N18.3 Chronic kidney disease, stage 3 (moderate); I50.9 Heart failure, unspecified; Z87.891 Personal history of nicotine dependence; Z98.890 Other specified postprocedural states; Z88.0 Allergy status to penicillin; Z88.1 Allergy status to other antibiotic agents; Z90.49 Acquired absence of other specified parts of digestive tract; Z68.27 Body mass index [BMI] 27.0-27.9, adult; Z96.653 Presence of artificial knee joint, bilateral; Z96.649 Presence of unspecified artificial hip joint; Z95.0 Presence of cardiac pacemaker; Z80.1 Family history of malignant neoplasm of trachea, bronchus and lung

== ENCOUNTER → 2017-03-12 | Outpatient (CLI) | payer OTHER, MEDICARE ==
[~2017-03-12] MED LIST changes: -ATROPINE SULFATE 0.1 MG/ML 5ML SYR IV PRN; -CIPROFLOXACIN 200MG / D5W IV SCH; -CONRAY 30% 150ML BOTTLE ONE; -ETOMIDATE 2 MG/ML 20 ML VIAL IV ONE; -EpHEDrine SULFATE INJ 50 MG/ML AMP IV PRN; -FENTANYL CITRATE INJ 50 MCG/1 ML 2 ML VIAL IV PRN; -FENTANYL CITRATE INJ 50 MCG/1 ML 2 ML VIAL ONE; -KETAMINE HCL INJ 50 MG/ML 10 ML VIAL ONE; -LACTATED RINGER'S 1000ML 1,000 ML IV SCH; -LIDOCAINE HCL 2% 2 ML VIAL (20MG/ML) ONE; -MIDAZOLAM HCL 1 MG/ML 2ML VIAL ONE; -NURSING VERBAL MED ORDER ONE; -ONDANSETRON INJ 2 MG/ML 2 ML VIAL IV PRN; -ONDANSETRON INJ 2 MG/ML 2 ML VIAL ONE; -OXYCODONE/ACETAMINOPHEN 5-325 TAB PO PRN; -PHEN-939 PO; -PHENAZOPYRIDINE HCL 100 MG TAB PO PRN; -PROPOFOL IV EMULSION 10 MG/ML 20 ML VIAL IV ONE
== END | disposition home or self-care (01) ==
LOC: C.LABSPEC 17:07
PROVIDERS: ATTEND Urology
DX: R31.0 Gross hematuria (principal); R39.15 Urgency of urination; N39.0 Urinary tract infection, site not specified; R32 Unspecified urinary incontinence; R39.198 Other difficulties with micturition; C61 Malignant neoplasm of prostate; R35.0 Frequency of micturition; N30.40 Irradiation cystitis without hematuria

== ENCOUNTER 2017-04-02 10:22 | Emergency (ER) | payer OTHER, MEDICARE ==
[~2017-04-02] VITALS: Ht 182.9 cm; Wt 100.0 kg
[~2017-04-02 10:22] MED LIST changes: -ALBUAER INH; -OXYC1TAB3 PO; -SULF800T23 PO
[2017-04-02 10:33] VITALS: O2SAT 97
[2017-04-02] MEDS ORDERED: ALBUT/IPRATROP 3MG/0.5MG NEB 3 ML VIAL INH STA (11:14)
[2017-04-02 11:39] LABS: BASO % 0.3 %; BASO ABS # 0.02 K/uL (0-0.2); COMPLETE YES; EOS % 1.1 %; HEMATOCRIT 31.4 % (42-52); IG% 0.3 %; LYMPH % 12.3 %; LYMPH ABS # 0.98 K/uL (1.2-3.4); MEAN CELL VOLUME 100.3 fL (80-100); MEAN CORPUSCULAR HEMOGLOBIN 32.6 pg (25-34); MEAN CORPUSCULAR HGB CONC 32.5 g/dl (32-36); MEAN PLATELET VOLUME 11.8 fL (7.4-10.4); PLATELET COUNT 198 K/uL (130-400); RED BLOOD COUNT 3.13 M/uL (4.7-6.1); WHITE BLOOD COUNT 7.95 K/uL (4.8-10.8)
[2017-04-02 11:48] LABS: BUN/CREATININE RATIO 26.9 (10-20); CREATININE 1.75 mg/dl (0.60-1.40); POTASSIUM 3.9 mmol/L (3.5-5.1)
[2017-04-02 11:50] LABS: INR 1.2 (0.9-1.1); PARTIAL THROMBOPLASTIN RATIO 1.3; PROTHROMBIN TIME (PATIENT) 13.4 SECONDS (9.0-12.0)
--- NOTE | 2017-04-02 12:45 | DIAGNOSTIC IMAGING REPORT ---
CHEST 2 VIEWS ROUTINE CLINICAL HISTORY: 89 years-old Male presenting with eval for pna. TECHNIQUE: PA and lateral views of the chest were obtained. COMPARISON: 11/08/2016. FINDINGS: Left subclavian implanted cardiac defibrillator with leads to the right atrium, coronary sinus, and right ventricular apex. A second right ventricular apex pacer lead may represent an abandoned lead. Atherosclerosis of aortic arch. Cardiac silhouette mildly enlarged, unchanged. Minimal vague opacities at the lung bases similar to prior. No new focal infiltrate. Minimal blunting of the bilateral costophrenic angles may relate to kyphotic deformity of the thoracic spine. No large pleural effusion or pneumothorax. Degenerative changes of the thoracic spine. Partially visualized IVC filter. IMPRESSION: 1. No acute cardiopulmonary disease. 2. Minimal vague bibasilar opacities likely scarring or atelectasis, unchanged from prior exam. 3. Cardiomegaly. Electronically signed by: Bhanu Shea M.D. 04/02/2017 12:44 PM Dictated Date/Time: 04/02/2017 12:42 PM
[2017-04-02 13:38] VITALS: BP 132/62; PULSE 66; TEMP 36.7; O2SAT 98; Ht 182.9 cm; Wt 100.0 kg
[2017-04-02] MEDS ORDERED: FURO20TA PO (16:12)
[2017-04-02] MEDS ORDERED: ALBINS/ INH (16:12)
--- NOTE | 2017-04-02 16:49 | Medical Consult ---
Consultation Date of Consultation: Apr 02, 2017. Attending Physician: Dr. Juan Malik Reason for Consultation: Evaluation for Admission History of Present Illness Mr. 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 Patient has had chronic WILLIS that has progressively worsened with time. He reports that he has noticed his WILLIS has progressed over the past month but really noticing this over the past 2-3 days. He has chronic orthopnea and sleeps with a wedge and reporting no change with this. He is able to ambulate his normal distance with a rolling/seated walker. He stated that as long as he takes his time he has been able to walk his normal distance over the past 2-3 days. He reports no drastic weight increase and reporting his lower extremities are swollen at baseline. He does not feel they are worse then his usual. He reports a cough that started in the ED and relates this to dry mouth but denies chronic cough or recent URI. Denies sick contacts. He did receive his flu vaccine this year and his pneumonia vaccine in the recent past. He was seen by his forensic dna analyst yesterday (Dr. Reynolds) in [place] and reports no change in current plan. He has known severe and the discussion of TAVR has been ongoing. Patient also follows with Dr. Castellon who has reached out to [facility] [place] see if someone would be willing to take his case. Unfortunately, two messages sent but no response yet. Called Dr. Reynolds's office who reports that there was no change in current medical management and recommended referral for TAVR and plans to follow-up with him in [address]. [address] Castellon who reported he has not heard back from a surgeon in [facility] [place] yet. He has noticed progressive worsening of patient's symptoms and is guarded that the TAVR will be of significant benefit given his co-morbidities and other valvular problems. He also does not plan on any further invasive testing unless TAVR is approved and would complete a heart catheterization prior to TAVR. Spoke with Daughter Sierra who confirms that patient has been progressively complaining of WILLIS and getting deconditioned. Did bridge the topic of palliative care if TAVR is not pursued. Explained the ED findings to her over the phone. Does complain of hematuria that is improving and was supposed to start hypobaric therapy today but was sent here instead. Patient denies fever/chills, CP, shortness of breath at rest, N/V, abdominal pain, dysuria, constipation/diarrhea, hematochezia/melena. In the ED, patient is normotensive with saturations 97-98% on RA. He is afebrile without leukocytosis. Hemoglobin stable at 10.2. Cr is baseline at 1.75. BNP elevated at 5139 which is chronic as far back as 2013 with most recent in November of 4705. Troponins mildly elevated at 0.090 which trends back to 2014 with last in November of 0.079. CXR with minimal opacities at lung bases that was on previous study from November, no new infiltrate, minimal blunting of b/l costophrenic angles. EKG is ventricularly paced. Past Medical/Surgical History 1. Systolic Congestive Heart Failure - EF 40-45% 2. Ischemic Cardiomyopathy 3. CAD S/P Stents 4. Persistent Atrial Fibrillation S/P Pacer - Currently Ventricularly Paced 5. COPD 6. Carotid Stenosis S/P Stents 7. Possible CVA with L-Sided Residual Deficits 8. HTN 9. Moderate Pulmonary Hypertension 10. Severe Aortic Stenosis and Mitral/Pulmonic/Tricuspid Regurgitation 11. CKD Stage III-IV 12. Chronic Elevated Troponins 13. Chronic Elevated BNP 14. Prostate CA (1998) 15. Radiation Cystitis 16. GERD Family History Hypertension Social History Smoking Status: Former Smoker Smokeless Tobacco Use: No Alcohol Use: none Drug Use: none Marital Status: Housing Status: assisted living ([facility]) Occupation Status: retired Allergies Coded Allergies: Amoxicillin (Verified Allergy, Unknown, HIVES, 04/02/17) Levofloxacin (Verified Allergy, Unknown, HIVES, 04/02/17) Penicillins (Verified Allergy, Unknown, HIVES, 04/02/17) Home Medications Reported Home Medications Medications Dose Route/Sig Max Daily Dose Days Date Category Dose Instructions Proventil 0.083% 2.5MG/3ML (Albuterol Sulf) 2.5 Mg/3 Ml Nebu 2.5 Mg INH Q6 PRN 04/02/17 Rx Lasix (Furosemide) 20 Mg Tab 1 Tab PO DAILY PRN 04/02/17 Rx Rapaflo (Silodosin) 8 Mg Cap 1 Cap PO QPM 02/11/17 Reported Proscar (Finasteride) 5 Mg Tab 5 Mg PO QAM 02/11/17 Reported Biotene Dry Mouth Oral Ri (Mouthwashes) 1 Liq Liq 1 Dose PO QID 11/08/16 Reported Lagrange Nasal Sedan (Saline) 0.65 % Spr 2 Sprays EMMA Q4 11/08/16 Reported Systane (Polyethylene Glycol-Propylene) 1 Zoila Zoila 1 Drops OP QID 11/08/16 Reported Colace (Docusate Sodium) 100 Mg Cap 1 Cap PO BID 11/08/16 Reported Pradaxa (Dabigatran Elexilate) 75 Mg Cap 75 Mg PO BID 11/08/16 Reported Icy Hot Naturals (Menthol (Topical Analgesic)) 7.5 % Cre 1 Appln TOP TID PRN 11/08/16 Reported Nystatin (Nystatin (Topical)) 1 Pow Pow 1 Appln TOP BID PRN 11/08/16 Reported [Icy Hot Cream] 1 Appln TOP BID PRN 11/08/16 Reported Aspercreme (Trolamine Salicylate) 10 % Lot 1 Appln TOP BID PRN 11/08/16 Reported Tylenol (Acetaminophen) 500 Mg Tab 1 Tab PO HS 09/02/16 Reported Metamucil (Psyllium) 48.57 % Pow 1 Tbs PO DAILY PRN 06/19/16 Reported Citrate Of Megnesia (Magnesium Citrate) 1 Zoila Zoila 75 Ml PO DAILY PRN 06/19/16 Reported Milk Of Magnesia (Magnesium Hydroxide) 30 Ml Susp 30 Ml PO DAILY PRN 06/19/16 Reported Flonase Allergy Relief (Fluticasone Propionate (Nasal)) 50 Mcg/Act Spr 2 Sprays EMMA HS 06/19/16 Reported Coreg (Carvedilol) 3.125 Mg Tab 3.125 Mg PO BID 06/19/16 Reported Prilosec (Omeprazole) 20 Mg Capcr 20 Mg PO QAM 06/19/16 Reported Vitamin D3 (Cholecalciferol) 1,000 Unit Tab 1 Tab PO QAM 06/19/16 Reported Lasix (Furosemide) 80 Mg Tab 80 Mg PO BID 09/05/15 Reported Cleocin (Clindamycin Hcl) 150 Mg Cap 600 Mg PO DAILY PRN 01/25/15 Reported TAKE PRIOR TO DENTAL APPOINTMENT Melatonin 1 Mg Tab 6 Mg PO HS 01/25/15 Reported Zyrtec Allergy (Cetirizine Hcl) 10 Mg Tab 10 Mg PO QAM 01/25/15 Reported Cozaar (Losartan Potassium) 25 Mg Tab 12.5 Mg PO QAM 01/25/15 Reported Ricola (Menthol (Mouth-Throat)) 1 Norma Norma 1 Norma PO Q2H PRN 08/09/14 Reported Klonopin (Clonazepam) 0.5 Mg Tab 0.5 Mg PO QPM 08/09/14 Reported Potassium Chloride Er (Potassium Chloride) 10 Meq Tab 10 Meq PO BID 08/09/14 Reported Tylenol (Acetaminophen) 325 Mg Tab 650 Mg PO Q4H PRN 06/04/13 Reported MAXIMUM OF 3 GM APAP/24 HOURS Advair Diskus 250/50 60 Dose (Fluticasone Prop/Salmeterol) 1 Ea Aerp 1 Puff INH BID 06/04/13 Reported RINSE MOUTH AFTER USE. Review of Systems Constitutional: No fever, No chills ENT: No nasal symptoms, No sore throat, No trouble swallowing Respiratory: + dyspnea on exertion, No cough, No dyspnea at rest Cardiovascular: + orthopnea (chronic), + edema (b/l lower extremities with L>R that is chronic - at baseline), No chest pain, No palpitations Abdomen: No pain, No nausea, No vomiting, No diarrhea, No constipation, No GI bleeding Musculoskeletal: No calf pain Genitourinary - Male: No dysuria Neurologic: + problem reported (chronic L sided weakness, foot drop - suspects possible CVA x 10 years ago) Hematologic / Lymphatic: No abnormal bleeding/bruising, No clotting problems Integumentary: No rash Physical Exam Date Time Temp Pulse Resp B/P (MAP) Pulse Ox O2 Delivery O2 Flow Rate FiO2 04/02/17 16:07 60 13 04/02/17 15:52 60 13 04/02/17 15:37 60 24 04/02/17 15:22 60 34 04/02/17 15:07 64 27 04/02/17 14:52 60 23 96 04/02/17 14:37 61 13 98 04/02/17 14:22 61 25 85 04/02/17 14:07 61 12 98 04/02/17 13:52 62 19 98 04/02/17 13:50 61 18 135/70 100 Room Air 04/02/17 13:49 135/70 04/02/17 13:49 60 04/02/17 13:38 36.7 66 18 132/62 98 Room Air 04/02/17 13:09 132/62 04/02/17 13:06 132/62 04/02/17 12:22 60 26 98 04/02/17 12:07 60 14 100 04/02/17 12:00 126/59 04/02/17 11:59 66 18 126/59 98 Room Air 04/02/17 11:37 60 20 97 04/02/17 11:22 60 19 04/02/17 11:07 60 24 96 04/02/17 10:52 60 15 98 04/02/17 10:37 60 13 100 04/02/17 10:36 63 04/02/17 10:33 98 Room Air 04/02/17 10:33 36.7 60 20 122/66 97 Room Air 04/02/17 10:33 97 Room Air 04/02/17 10:28 122/66 General Appearance: no apparent distress, + pertinent finding (chronically ill- appearing) Head: normocephalic, atraumatic Eyes: sclerae normal ENT: hearing grossly normal Neck: supple, no JVD, trachea midline Respiratory/Chest: no respiratory distress, no accessory muscle use, + crackles (minimal in bases b/l), + pertinent finding (good air flow quality; no supplemental O2 needs) Cardiovascular: regular rate, rhythm, + systolic murmur Abdomen/GI: normal bowel sounds, non tender, soft Extremities/Musculoskelatal: no calf tenderness, + swelling (trace to 1+ pitting edema of ankles - skin is shiny b/l) Neurologic/Psych: alert, oriented x 3 Skin: normal color, warm/dry Laboratory Results Last 24 Hours Test 04/02/17 10:30 04/02/17 11:25 White Blood Count 7.95 K/uL Red Blood Count 3.13 M/uL Hemoglobin 10.2 g/dL Hematocrit 31.4 % Mean Corpuscular Volume 100.3 fL Mean Corpuscular Hemoglobin 32.6 pg Mean Corpuscular Hemoglobin Concent 32.5 g/dl Platelet Count 198 K/uL Mean Platelet Volume 11.8 fL Neutrophils (%) (Auto) 73.0 % Lymphocytes (%) (Auto) 12.3 % Monocytes (%) (Auto) 13.0 % Eosinophils (%) (Auto) 1.1 % Basophils (%) (Auto) 0.3 % Neutrophils # (Auto) 5.81 K/uL Lymphocytes # (Auto) 0.98 K/uL Monocytes # (Auto) 1.03 K/uL Eosinophils # (Auto) 0.09 K/uL Basophils # (Auto) 0.02 K/uL RDW Standard Deviation 51.0 fL RDW Coefficient of Variation 14.1 % Immature Granulocyte % (Auto) 0.3 % Immature Granulocyte # (Auto) 0.02 K/uL Prothrombin Time 13.4 SECONDS Prothromb Time International Ratio 1.2 Activated Partial Thromboplast Time 34.8 SECONDS Partial Thromboplastin Ratio 1.3 Sodium Level 140 mmol/L Potassium Level 3.9 mmol/L Chloride Level 107 mmol/L Carbon Dioxide Level 28 mmol/L Anion Gap 5.0 mmol/L Blood Urea Nitrogen 47 mg/dl Creatinine 1.75 mg/dl Est Creatinine Clear Calc Drug Dose 35.0 ml/min Estimated GFR () 39.1 Estimated GFR (Non- 33.8 BUN/Creatinine Ratio 26.9 Random Glucose 79 mg/dl Calcium Level 9.0 mg/dl Pro-B-Type Natriuretic Peptide 5139 pg/ml Bedside Troponin I 0.090 ng/ml Assessment & Plan Mr. 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 Chronic WILLIS with Worsened Symptoms x 2-3 Days: - This is a combination of systolic CHF (improving as echo from 2017 with EF 40- 45% which previous revealed 20-25%), moderate pulmonary hypertension, underlying COPD, severe aortic stenosis, and mitral/pulmonic/tricuspid regurgitation, and ischemic cardiomyopathy - Patient is chronically orthopneic and sleeps with a wedge and denies worsening of this - Remaining on RA with saturations in 97-98% range; holds a normal conversation without pauses for dyspnea - Patient with bilateral good air flow with minimal crackles at bases; no wheezing; no URI symptoms - Reporting that he is able to ambulate his normal distance and reports that he just needs to take his time - Weight has been stable and lower extremity edema at baseline; Is compliant with Lasix which he is currently on 80 mg BID - Discussed the case with Dr. Reynolds's ([facility]) office and Dr. Castellon, Daughter Sierra over the phone (both myself and Dr. Leon), and Dr. Leon discussed with [facility] night charge nurse - Conversation with daughter who states the forensic dna analyst has noted that his EF is improving and murmurs are less significant - however do suspect overall improvement will be limited Elevated BNP and Elevated Troponins: CHRONIC - Review of records revealed these to be chronic for him; appears euvolemic except for mild b/l lower extremity edema and denies CP - Does have CKD and given co-morbidities from a cardiac standpoint would suspect to continue to have elevated troponins and BNP CKD Stage III-IV: - At baseline and would continue avoiding nephrotoxic agents except for prescribed Lasix therapy PLAN: - Will continue current medical management with BB therapy and Lasix 80 mg BID - Daily weights and Rx given for PRN Lasix 20 mg for excessive weight gain - Rx given for Duonebs to have if needed - Discussed with ED Case Management to have follow-up appt. with Dr. Castellon - Patient should follow-up with cardiology to further discuss TAVR - Given patient's age and co-morbidities he would benefit from palliative care evaluation especially if TAVR not performed or if generally not much improvement noted Additional Copies To Bhanu Loyola M.D. Reviewed: Pt Seen/Exam by Me History Agree with HPI/ROS/Plan. See my note for details. Assessment/Plan Agree with plan as outlined by RANDALL Wilson. I discussed plan with pt and daughter Ms. Lim spoke with Dr. Castellon who feels pt is unlikely to have a TAVR and has been trying to discuss with [facility] [place]. He feels pt would be fine to d/c home with weight checks and PRN lasix. I discussed all of this with pt and daughter who feel this is acceptable. ED CM attempting to get an appt with Dr. Castellon for this week. I also called [facility] and discussed this plan with Niki, the night charge nurse. Pt also to have PRN duonebs if ongoing SOB that is not improved with additional 20mg lasix
--- NOTE | 2017-04-02 17:30 | EMERGENCY ROOM VISIT NOTE ---
History Report prepared by Seema: Makayla Estrada Under the Supervision of: Dr. Juan Malik M.D. First contact with patient: 11:06 Chief Complaint: SHORTNESS OF BREATH Stated Complaint: WOUND CARE Nursing Triage Summary: Please see orange note on chart. Pt here via BLS litter [facility] where pt was to start hyperbaric oxygen therapy today. Pt reports SOB for the past couple days. Non prod cough. Denies cp, fever/chills, cold/flu sx. Pt states he does have some swelling in his BLE which is normal for him. Pt states he has a defib. Reports hx of COPD. History of Present Illness The patient is a 89 year old male who presents to the Emergency Room with complaints of constant shortness of breath for the past 2-3 days. He has a history of CHF and COPD and states that this feels like his typical symptoms acting up. He is not on oxygen at home. He was at the wound care clinic today and was noted to be dyspneic. He was sent to the ED for further evaluation. The patient denies fever, cough, chest pain, nausea, vomiting, abdominal pain, and cold symptoms. He reports some leg swelling and is on Lasix. He took his Lasix this morning. Source of History: patient Onset: 2-3 days ago Position: chest (respiratory) Quality: other (shortness of breath) Timing: constant Associated Symptoms: No fevers, No cough, No chest pain, No nausea, No vomiting, No abdominal pain Note: Pt notes bilateral leg swelling. Review of Systems See HPI for pertinent positives & negatives. A total of 10 systems reviewed and were otherwise negative. Past Medical & Surgical Medical Problems: (1) Atrial fibrillation (2) Cardiac stents (3) Carotid stents (4) Chest pain (5) CHF (congestive heart failure) (6) Coronary stents (7) HTN (hypertension) (8) UTI (lower urinary tract infection) Family History Hypertension Social History Smoking Status: Former Smoker Alcohol Use: none Drug Use: none Marital Status: Housing Status: assisted living Occupation Status: retired Current/Historical Medications Scheduled Acetaminophen (Tylenol), 1 TAB PO HS Carvedilol (Coreg), 3.125 MG PO BID Cetirizine Hcl (Zyrtec Allergy), 10 MG PO QAM Cholecalciferol (Vitamin D3), 1 TAB PO QAM Clonazepam (Klonopin), 0.5 MG PO QPM Dabigatran Elexilate (Pradaxa), 75 MG PO BID Docusate Sodium (Colace), 1 CAP PO BID Finasteride (Proscar), 5 MG PO QAM Fluticasone Prop/Salmeterol (Advair Diskus 250/50 60 Dose), 1 PUFF INH BID Fluticasone Propionate (Nasal) (Flonase Allergy Relief), 2 SPRAYS EMMA HS Furosemide (Lasix), 80 MG PO BID Losartan Potassium (Cozaar), 12.5 MG PO QAM Melatonin (Melatonin), 6 MG PO HS Mouthwashes (Biotene Dry Mouth Oral Ri), 1 DOSE PO QID Omeprazole (Prilosec), 20 MG PO QAM Polyethylene Glycol-Propylene (Systane), 1 DROPS OP QID Potassium Chloride (Potassium Chloride Er), 10 MEQ PO BID Saline (Reagan Nasal [place]), 2 SPRAYS EMMA Q4 Silodosin (Rapaflo), 1 CAP PO QPM Scheduled PRN Acetaminophen Tab (Tylenol), 650 MG PO Q4H PRN for Mild Pain Albuterol Sulf (Proventil 0.083% 2.5MG/3ML), 2.5 MG INH Q6 PRN for Shortness of Breath Clindamycin Hcl (Cleocin), 600 MG PO DAILY PRN for PRIOR TO DENTAL APPT Furosemide (Lasix), 1 TAB PO DAILY PRN for Shortness of Breath Magnesium Citrate (Citrate Of Megnesia), 75 ML PO DAILY PRN for Constipation Magnesium Hydroxide (Milk Of Magnesia), 30 ML PO DAILY PRN for Constipation Menthol (Mouth-Throat) (Ricola), 1 YOUNG PO Q2H PRN for Cough Menthol (Topical Analgesic) (Icy Hot Naturals), 1 APPLN TOP TID PRN for Pain Nystatin (Topical) (Nystatin), 1 APPLN TOP BID PRN for GROIN IRRITATION Psyllium (Metamucil), 1 TBS PO DAILY PRN for Constipation Trolamine Salicylate (Aspercreme), 1 APPLN TOP BID PRN for Pain [Icy Hot Cream], 1 APPLN TOP BID PRN for Pain Allergies Coded Allergies: Amoxicillin (Verified Allergy, Unknown, HIVES, 04/02/17) Levofloxacin (Verified Allergy, Unknown, HIVES, 04/02/17) Penicillins (Verified Allergy, Unknown, HIVES, 04/02/17) Physical Exam Vital Signs Date Time Temp Pulse Resp B/P (MAP) Pulse Ox O2 Delivery O2 Flow Rate FiO2 04/02/17 16:07 60 13 04/02/17 15:52 60 13 04/02/17 15:37 60 24 04/02/17 15:22 60 34 04/02/17 15:07 64 27 04/02/17 14:52 60 23 96 04/02/17 14:37 61 13 98 04/02/17 14:22 61 25 85 04/02/17 14:07 61 12 98 04/02/17 13:52 62 19 98 04/02/17 13:50 61 18 135/70 100 Room Air 04/02/17 13:49 135/70 04/02/17 13:49 60 04/02/17 13:38 36.7 66 18 132/62 98 Room Air 04/02/17 13:09 132/62 04/02/17 13:06 132/62 04/02/17 12:22 60 26 98 04/02/17 12:07 60 14 100 04/02/17 12:00 126/59 04/02/17 11:59 66 18 126/59 98 Room Air 04/02/17 11:37 60 20 97 04/02/17 11:22 60 19 04/02/17 11:07 60 24 96 04/02/17 10:52 60 15 98 04/02/17 10:37 60 13 100 04/02/17 10:36 63 04/02/17 10:33 98 Room Air 04/02/17 10:33 36.7 60 20 122/66 97 Room Air 04/02/17 10:33 97 Room Air 04/02/17 10:28 122/66 Physical Exam Constitutional: Vital signs reviewed. Eyes: Pupils are equal round reactive to light. Conjunctiva are noninjected. ENT: Pharynx is clear without erythema or exudate. Mucous membranes are moist. Neck supple without meningeal signs. Respiratory: Bibasilar crackles. Breath sounds are equal bilaterally. Cardiovascular: Regular rate and rhythm. No rubs or gallops. GI: Soft, nondistended and nontender. Bowel sounds are present. Musculoskeletal: Pedal edema bilaterally. No lower extremity tenderness. Integumentary: No cyanosis. Neurological: The patient is awake and alert. No focal deficits. Psychiatric: Normal affect. Medical Decision & Procedures ER Provider Diagnostic Interpretation: Radiology results as stated below per my review and the radiologist's interpretation: CHEST 2 VIEWS ROUTINE CLINICAL HISTORY: 89 years-old Male presenting with eval for pna. TECHNIQUE: PA and lateral views of the chest were obtained. COMPARISON: 11/08/2016. FINDINGS: Left subclavian implanted cardiac defibrillator with leads to the right atrium, coronary sinus, and right ventricular apex. A second right ventricular apex pacer lead may represent an abandoned lead. Atherosclerosis of aortic arch. Cardiac silhouette mildly enlarged, unchanged. Minimal vague opacities at the lung bases similar to prior. No new focal infiltrate. Minimal blunting of the bilateral costophrenic angles may relate to kyphotic deformity of the thoracic spine. No large pleural effusion or pneumothorax. Degenerative changes of the thoracic spine. Partially visualized IVC filter. IMPRESSION: 1. No acute cardiopulmonary disease. 2. Minimal vague bibasilar opacities likely scarring or atelectasis, unchanged from prior exam. 3. Cardiomegaly. Electronically signed by: Bhanu Shea M.D. 04/02/2017 12:44 PM Dictated Date/Time: 04/02/2017 12:42 PM Laboratory Results 04/02/17 10:30 Red Blood Count 3.13, Mean Corpuscular Volume 100.3, Mean Corpuscular Hemoglobin 32.6, Mean Corpuscular Hemoglobin Concent 32.5, Mean Platelet Volume 11.8, Neutrophils (%) (Auto) 73.0, Lymphocytes (%) (Auto) 12.3, Monocytes (%) ( Auto) 13.0, Eosinophils (%) (Auto) 1.1, Basophils (%) (Auto) 0.3, Neutrophils # (Auto) 5.81, Lymphocytes # (Auto) 0.98, Monocytes # (Auto) 1.03, Eosinophils # ( Auto) 0.09, Basophils # (Auto) 0.02 04/02/17 10:30 Test 04/02/17 10:30 04/02/17 11:25 White Blood Count 7.95 K/uL (4.8-10.8) Red Blood Count 3.13 M/uL (4.7-6.1) Hemoglobin 10.2 g/dL (14.0-18.0) Hematocrit 31.4 % (42-52) Mean Corpuscular Volume 100.3 fL (80-100) Mean Corpuscular Hemoglobin 32.6 pg (25-34) Mean Corpuscular Hemoglobin Concent 32.5 g/dl (32-36) Platelet Count 198 K/uL (130-400) Mean Platelet Volume 11.8 fL (7.4-10.4) Neutrophils (%) (Auto) 73.0 % Lymphocytes (%) (Auto) 12.3 % Monocytes (%) (Auto) 13.0 % Eosinophils (%) (Auto) 1.1 % Basophils (%) (Auto) 0.3 % Neutrophils # (Auto) 5.81 K/uL (1.4-6.5) Lymphocytes # (Auto) 0.98 K/uL (1.2-3.4) Monocytes # (Auto) 1.03 K/uL (0.11-0.59) Eosinophils # (Auto) 0.09 K/uL (0-0.5) Basophils # (Auto) 0.02 K/uL (0-0.2) RDW Standard Deviation 51.0 fL (36.4-46.3) RDW Coefficient of Variation 14.1 % (11.5-14.5) Immature Granulocyte % (Auto) 0.3 % Immature Granulocyte # (Auto) 0.02 K/uL (0.00-0.02) Prothrombin Time 13.4 SECONDS (9.0-12.0) Prothromb Time International Ratio 1.2 (0.9-1.1) Activated Partial Thromboplast Time 34.8 SECONDS (21.0-31.0) Partial Thromboplastin Ratio 1.3 Anion Gap 5.0 mmol/L (3-11) Est Creatinine Clear Calc Drug Dose 35.0 ml/min Estimated GFR () 39.1 Estimated GFR (Non- 33.8 BUN/Creatinine Ratio 26.9 (10-20) Calcium Level 9.0 mg/dl (8.5-10.1) Pro-B-Type Natriuretic Peptide 5139 pg/ml (0-1800) Bedside Troponin I 0.090 ng/ml (0-0.045) Laboratory results as reviewed by me. Medications Administered Medications (Trade) Dose Ordered Sig/José Manuel Route Start Time Stop Time Status Last Admin Dose Admin Albuterol/ Ipratropium (Duoneb) 3 ml NOW STAT INH 04/02/17 11:14 04/02/17 11:17 DC 04/02/17 11:58 3 ML ECG Indication: SOB/dyspnea Rate (beats per minute): 80 Rhythm: other (ventricular paced) Findings: no ectopy, other (QRS is 234 ms) ED Course 1106: The patient was evaluated in room B5. A complete history and physical exam was performed. 1114: DuoNeb 3 ml INH 1236: Upon reevaluation the patient is feeling better and his breathing has improved. His lungs are clear other than rales. 1357: I spoke with Dr. Leon. We discussed the patient's case. The patient will be evaluated by the [facility] for further management. 1358: I reassessed the patient at this time. He is feeling better and resting comfortably. I discussed the results and treatment plan with the patient. I answered all pertaining questions that he had. He expressed understanding and verbalized agreement. 1554: I discussed the patient's case with Dr. Leon. She had spoken with Dr. Castellon of cardiology and they did not think that the patient needed TAVR or admission. He recommended outpatient follow-up. They patient's baseline troponin is chronically elevated. He will be discharged back to [facility]. Medical Decision This is an 89-year-old male who presents with dyspnea. Differential diagnosis includes CHF exacerbation, COPD exacerbation, pulmonary edema, pneumonia, pleural effusion, anemia. I did perform a limited focused review of portions of the patient's old chart on the electronic medical record. The patient was seen today at the wound care clinic to start hyperbaric therapy. He was noted to be dyspneic with a pulse ox of 99% and RR of 20 with diminished breath sounds bilaterally. He was sent to the ED for further evaluation. I did evaluate the patient as noted above. Patient states he has been short of breath for the past 2-3 days. He does have a history of CHF and COPD. His lungs are clear to auscultation bilaterally except for some bibasilar crackles. He was given a DuoNeb. IV access was established. The patient was placed on a continuous cardiac cath rn.I did order and personally review the patient's 12- lead EKG and chest x-ray as described above. I did order and review the patient 's blood work as noted in the electronic medical record. His BNP is slightly elevated. His creatinine is elevated but at approximate baseline. His troponin is slightly elevated. I did reassess the patient. He is feeling better. He has no complaints currently. He continues to deny any chest discomfort. He is no longer short of breath. Her lungs are clear to auscultation bilaterally. Because of his elevated troponin I did recommend hospitalization for repeat enzymes, although his elevation may be due to his poor renal function. He has had elevated troponins in the past. I did discuss case with the hospitalist and case work aide. The hospitalist did evaluate the patient and did not feel the patient needed to be hospitalized. He seems at his baseline. She did speak to the military exchange wireless manager rn clinical documentation who recommended that his Lasix be increased by 20 mg daily as needed as well as albuterol nebulizers. I did discharge the patient back to [facility] with a prescription for Lasix as well as albuterol nebulizers. The patient will follow closely with his military exchange wireless manager. Medication Reconcilliation Current Medication List: was personally reviewed by me Blood Pressure Screening Patient's blood pressure: Normal blood pressure Consults Time Called: 1352 Consulting Physician: Dr. Leon Returned Call: [address] Leon. We discussed the patient's case. The patient will be evaluated by the [facility] for further management. Additional Consults: Time Called: 1554 Consulted Physician: Dr. Leon Returned Call: [phone] Additional Comments: I discussed the patient's case with Dr. Leon. She had spoken with Dr. Castellon of cardiology and they did not think that the patient needed TAVR or admission. He recommended outpatient follow-up. They patient's baseline troponin is chronically elevated. He will be discharged back to [facility]. Impression Primary Impression: CHF exacerbation Additional Impressions: COPD (chronic obstructive pulmonary disease) Elevated troponin Chronic renal insufficiency Scribe Attestation The scribe's documentation has been prepared under my direct and personally reviewed by me in its entirety. I confirm that the note above accurately reflects all work, treatment, procedures, and medical decision making performed by me. Departure Information Dispostion Home / Self-Care Prescriptions Albuterol Sulf (PROVENTIL 0.083% 2.5MG/3ML) 2.5 Mg/3 Ml Nebu 2.5 MG INH Q6 Y for Shortness of Breath, #20 EA Prov: Juan Malik M.D. 04/02/17 Furosemide (LASIX) 20 Mg Tab 1 TAB PO DAILY Y for Shortness of Breath, #20 TAB 1 Refill Prov: Juan Malik M.D. 04/02/17 Referrals Bhanu Loyola M.D. (PCP) Forms HOME CARE DOCUMENTATION FORM, IMPORTANT VISIT INFORMATION Patient Instructions ED CHF General, [facility] Additional Instructions You have been examined and treated today on an emergency basis only. This is not a substitute for, or an effort to provide, complete comprehensive medical care. It is impossible to recognize and treat all injuries or illnesses in a single emergency department visit. It is therefore important that you follow up closely with your physician and military exchange wireless manager. Call as soon as possible for an appointment. Return for worsening symptoms or if you develop fever, chest pain or any other concerning symptoms. Problem Qualifiers Primary Impression: CHF exacerbation Congestive heart failure type: unspecified congestive heart failure type Qualified Codes: I50.9 - Heart failure, unspecified Additional Impressions: COPD (chronic obstructive pulmonary disease) COPD type: unspecified COPD Qualified Codes: J44.9 - Chronic obstructive pulmonary disease, unspecified Chronic renal insufficiency Chronic kidney disease stage: unspecified stage Qualified Codes: N18.9 - Chronic kidney disease, unspecified
[2017-04-02 18:00] VITALS: BP 135/70; PULSE 60; TEMP 36.7; O2SAT 96
--- NOTE | 2017-04-02 19:20 | Progress Note ---
Progress Note Date of Service Apr 02, 2017. Progress Note Pt seen and examined by me. His breathing has worsened in the last few months. He has been walking more slowly and this helps. He was seen by cardiology in [place] yesterday and given the name of a surgeon for a possible TAVR. Agree with above HPI and ROS as noted. Exam: Gen: NAD, WDWN Neck: Supple Eyes: WNL Hrt: RRR , neg edema Lungs: crackles, neg resp distress Abd: + BS, soft, nonTTP LE: neg for edema, nonTTP Neuro: A&O x3, pleasant Skin: neg for rash, warm/dry Plan: Agree with plan as outlined by RANDALL Wilson. I discussed plan with pt and daughter Mariel Lim spoke with Dr. Castellon who feels pt is unlikely to have a TAVR and has been trying to discuss with [facility] surgeons. He feels pt would be fine to d/c home with weight checks and PRN lasix. I discussed all of this with pt and daughter who feel this is acceptable. ED CM attempting to get an appt with Dr. Castellon for this week. I also called [facility] and discussed this plan with Niki, the night charge nurse. Pt also to have PRN duonebs if ongoing SOB that is not improved with additional 20mg lasix
== END 2017-04-02 18:01 | disposition home or self-care (01) ==
LOC: EDBD 10:22 → C.EDB 10:24
DX: I13.0 Hypertensive heart and chronic kidney disease with heart failure and stage 1 through stage 4 chronic kidney disease, or unspecified chronic kidney disease (principal); I50.23 Acute on chronic systolic (congestive) heart failure; J44.9 Chronic obstructive pulmonary disease, unspecified; I27.20 Pulmonary hypertension, unspecified; I08.3 Combined rheumatic disorders of mitral, aortic and tricuspid valves; I25.5 Ischemic cardiomyopathy; R79.89 Other specified abnormal findings of blood chemistry; N18.4 Chronic kidney disease, stage 4 (severe); N30.41 Irradiation cystitis with hematuria; I48.1 Persistent atrial fibrillation; I65.29 Occlusion and stenosis of unspecified carotid artery; K21.9 Gastro-esophageal reflux disease without esophagitis; Z95.810 Presence of automatic (implantable) cardiac defibrillator; Z95.5 Presence of coronary angioplasty implant and graft; Z79.01 Long term (current) use of anticoagulants; Z79.51 Long term (current) use of inhaled steroids; Z87.891 Personal history of nicotine dependence; Z85.46 Personal history of malignant neoplasm of prostate; Z82.49 Family history of ischemic heart disease and other diseases of the circulatory system

== ENCOUNTER → 2017-06-10 | Outpatient (CLI) | payer OTHER, MEDICARE ==
[~2017-06-10] MED LIST changes: +ACET-1693 PO; -ACET325T96 PO; +ALBINS/ INH; +FURO20TA PO
[2017-06-10 13:19] LABS: BLOOD UREA NITROGEN 82 mg/dl (7-18); CALCIUM 9.4 mg/dl (8.5-10.1); CARBON DIOXIDE 31 mmol/L (21-32); CREATININE 1.95 mg/dl (0.60-1.40); GLUCOSE 113 mg/dl (70-99); POTASSIUM 2.4 mmol/L (3.5-5.1); SODIUM 134 mmol/L (136-145)
== END | disposition home or self-care (01) ==
LOC: C.LABOAKS 10:32
PROVIDERS: ATTEND Nurse Practitioner
DX: I50.9 Heart failure, unspecified (principal)

== ENCOUNTER → 2017-06-17 | Outpatient (CLI) | payer OTHER, MEDICARE ==
[2017-06-17 13:06] LABS: BLOOD UREA NITROGEN 75 mg/dl (7-18); CALCIUM 9.2 mg/dl (8.5-10.1); CARBON DIOXIDE 29 mmol/L (21-32); GLUCOSE 110 mg/dl (70-99); POTASSIUM 2.9 mmol/L (3.5-5.1); SODIUM 136 mmol/L (136-145)
== END | disposition home or self-care (01) ==
LOC: C.LABOAKS 15:44
PROVIDERS: ATTEND Nurse Practitioner
DX: E87.6 Hypokalemia (principal)

== ENCOUNTER → 2017-07-01 | Outpatient (CLI) | payer OTHER, MEDICARE ==
[2017-07-01 13:46] LABS: BLOOD UREA NITROGEN 63 mg/dl (7-18); CALCIUM 9.4 mg/dl (8.5-10.1); CARBON DIOXIDE 28 mmol/L (21-32); CREATININE 1.91 mg/dl (0.60-1.40); GLUCOSE 105 mg/dl (70-99); SODIUM 139 mmol/L (136-145)
== END | disposition home or self-care (01) ==
LOC: C.LABOAKS 12:38
PROVIDERS: ATTEND Nurse Practitioner
DX: E87.6 Hypokalemia (principal); I50.9 Heart failure, unspecified

== ENCOUNTER → 2017-07-07 | Outpatient (CLI) | payer OTHER, MEDICARE ==
[2017-07-07 13:44] LABS: INFLUENZA B ANTIGEN Neg for Influ B (NEG)
== END | disposition home or self-care (01) ==
LOC: C.LABOAKS 12:57
PROVIDERS: ATTEND Nurse Practitioner
DX: R50.9 Fever, unspecified (principal)